=== PATIENT | male | born 1940 | race Caucasian/White ===

== ENCOUNTER → 2016-05-06 | Outpatient (CLI) | payer MEDICARE, BC ==
[2016-05-06 10:40] LABS: Basophils # (A) 0.1 k/uL (0-0.2); Basophils % (A) 1 %; CHCM 33.2; Eosinophils # (A) 0.5 k/uL (0-0.7); Eosinophils % (A) 6 %; HCT 44.3 % (39.0-53.0); HDW 2.44; HGB 14.6 gm/dL (13.0-17.5); Luc # (Auto) 0.29; Luc % (Auto) 4; Lymphocytes # (A) 2.9 k/uL (1.0-4.8); Lymphocytes % (A) 38 %; MCH 30.9 pg (25.0-35.0); MCHC 32.9 g/dL (31.0-37.0); Mean Platelet Volume 7.7; Monocytes # (A) 0.6 k/uL (0-1.0); Monocytes % (A) 7 %; Neutrophils # (A) 3.5 k/uL (1.3-7.7); Neutrophils % (A) 45 %; RBC 4.72 m/uL (4.30-5.90); RDW 13.5 % (11.5-15.5); WBC 7.8 k/uL (3.8-10.6); WBC (Perox) 7.95
[2016-05-06 10:57] LABS: Appearance,Urine Clear (Clear); Bilirubin,Urine Negative (Negative); Glucose,Urine (UA) Negative (Negative); Ketones,Urine Negative (Negative); Leukocyte Esterase,Urine Negative (Negative); Nitrite,Urine Negative (Negative); PH, Urine 5.5 (5.0-8.0); Protein,Urine Negative (Negative); Specific Gravity,Urine 1.008 (1.001-1.035); UA Billing (MACRO vs. MICRO) CHEM; Urobilinogen,Urine <2.0 mg/dL (<2.0)
[2016-05-06 11:16] LABS: Potassium 4.9 mmol/L (3.5-5.1)
[2016-05-06 11:17] LABS: Calcium 9.7 mg/dL (8.4-10.2); Magnesium 1.7 mg/dL (1.6-2.3); Phosphorous 3.8 mg/dL (2.5-4.5); Uric Acid 7.4 mg/dL (3.5-8.5)
== END | disposition home or self-care (01) ==
LOC: LABWHC1 10:00
PROVIDERS: ATTEND Internal Medicine Nephrology
DX: N18.3 Chronic kidney disease, stage 3 (moderate) (principal); E78.5 Hyperlipidemia, unspecified; D64.9 Anemia, unspecified; E55.9 Vitamin D deficiency, unspecified; E21.3 Hyperparathyroidism, unspecified; M10.9 Gout, unspecified; N39.0 Urinary tract infection, site not specified
CPT/HCPCS: 36415; 80048; 80061; 81003; 82306; 82728; 83540; 83550; 83735; 83970; 84100; 84550; 85025

== ENCOUNTER → 2016-10-14 | Outpatient (CLI) | payer MEDICARE, BC ==
--- NOTE | 2016-10-14 12:42 | FL ---
EXAMINATION TYPE: FL barium swallow w video DATE OF EXAM: 10/14/2016 COMPARISON: NONE HISTORY: Dysphasia TECHNIQUE: Fluoroscopy. FINDINGS: Fluoroscopic guidance was provided for the procedure performed in conjunction with the [facility] pathology department. Please see complete report forthcoming from the Speech Pathology departmen t. Various consistencies from thin liquid to solids were administered. No aspiration or penetration was evident. There is mild pooling within the vallecula which would clear with swallowing or liquids. There was normal propulsion of the bolus. IMPRESSION: 1. Mild pooling within the vallecula
== END | disposition home or self-care (01) ==
LOC: RADFLMAIN 11:09
PROVIDERS: ATTEND Surgery
DX: J38.7 Other diseases of larynx (principal); R13.10 Dysphagia, unspecified
CPT/HCPCS: 74230

== ENCOUNTER → 2016-11-18 | Outpatient (CLI) | payer MEDICARE, BC ==
[2016-11-18 11:03] LABS: Basophils # (A) 0.1 k/uL (0-0.2); Basophils % (A) 1 %; CH 31.1; CHCM 33.4; Eosinophils # (A) 0.3 k/uL (0-0.7); Eosinophils % (A) 4 %; HCT 42.5 % (39.0-53.0); HDW 2.49; HGB 14.2 gm/dL (13.0-17.5); Luc # (Auto) 0.25; Luc % (Auto) 3; Lymphocytes # (A) 2.8 k/uL (1.0-4.8); Lymphocytes % (A) 34 %; MCH 31.3 pg (25.0-35.0); MCHC 33.5 g/dL (31.0-37.0); MCV 93.5 fL (80.0-100.0); Mean Platelet Volume 7.7; Monocytes # (A) 0.7 k/uL (0-1.0); Monocytes % (A) 8 %; Neutrophils % (A) 50 %; RBC 4.55 m/uL (4.30-5.90); RDW 13.5 % (11.5-15.5); WBC 8.2 k/uL (3.8-10.6); WBC (Perox) 8.67
[2016-11-18 11:08] LABS: Appearance,Urine Clear (Clear); Bilirubin,Urine Negative (Negative); Glucose,Urine (UA) Negative (Negative); Ketones,Urine Negative (Negative); Leukocyte Esterase,Urine Negative (Negative); Nitrite,Urine Negative (Negative); PH, Urine 5.5 (5.0-8.0); Protein,Urine Negative (Negative); Specific Gravity,Urine 1.012 (1.001-1.035); UA Billing (MACRO vs. MICRO) CHEM; Urobilinogen,Urine <2.0 mg/dL (<2.0)
[2016-11-18 11:52] LABS: Calcium 9.7 mg/dL (8.4-10.2); Magnesium 1.7 mg/dL (1.6-2.3); Phosphorous 4.1 mg/dL (2.5-4.5); Potassium 4.7 mmol/L (3.5-5.1); Uric Acid 8.7 mg/dL (3.5-8.5)
[2016-11-18 12:02] LABS: % Iron Saturation 23.1 % (20-50)
== END | disposition home or self-care (01) ==
LOC: LABWHC1 10:13
PROVIDERS: ATTEND Internal Medicine Nephrology
DX: N18.3 Chronic kidney disease, stage 3 (moderate) (principal); D63.1 Anemia in chronic kidney disease; E55.9 Vitamin D deficiency, unspecified; N39.0 Urinary tract infection, site not specified; M10.9 Gout, unspecified
CPT/HCPCS: 36415; 80048; 81003; 82306; 82728; 83540; 83550; 83735; 83970; 84100; 84550; 85025

== ENCOUNTER → 2017-03-23 | Outpatient (CLI) | payer MEDICARE, OTHER | END | disposition home or self-care (01) | LOC: LABPAT 09:47 | PROVIDERS: ATTEND Internal Medicine Interventional Cardiology | DX: Z53.9 Procedure and treatment not carried out, unspecified reason (principal) ==

== ENCOUNTER → 2017-03-23 | Outpatient (CLI) | payer MEDICARE, OTHER ==
[2017-03-23 10:39] LABS: Appearance,Urine Clear (Clear); Bilirubin,Urine Negative (Negative); Glucose,Urine (UA) Negative (Negative); Ketones,Urine Negative (Negative); Leukocyte Esterase,Urine Negative (Negative); Nitrite,Urine Negative (Negative); PH, Urine 5.5 (5.0-8.0); Protein,Urine Trace (Negative); Specific Gravity,Urine 1.009 (1.001-1.035); UA Billing (MACRO vs. MICRO) CHEM; Urobilinogen,Urine <2.0 mg/dL (<2.0)
[2017-03-23 10:43] LABS: Basophils % (A) 1 %; CH 29.9; CHCM 31.8; Eosinophils # (A) 0.2 k/uL (0-0.7); Eosinophils % (A) 2 %; HCT 35.4 % (39.0-53.0); HDW 2.68; HGB 11.1 gm/dL (13.0-17.5); Hypochromasia Slight; Luc # (Auto) 0.17; Luc % (Auto) 2; Lymphocytes # (A) 1.9 k/uL (1.0-4.8); Lymphocytes % (A) 25 %; MCH 29.7 pg (25.0-35.0); MCHC 31.3 g/dL (31.0-37.0); MCV 94.7 fL (80.0-100.0); Mean Platelet Volume 8.5; Monocytes # (A) 0.7 k/uL (0-1.0); Monocytes % (A) 9 %; Neutrophils # (A) 4.8 k/uL (1.3-7.7); Neutrophils % (A) 62 %; RBC 3.74 m/uL (4.30-5.90); WBC 7.7 k/uL (3.8-10.6); WBC (Perox) 8.03
[2017-03-23 11:33] LABS: Calcium 9.6 mg/dL (8.4-10.2); Magnesium 1.7 mg/dL (1.6-2.3); Phosphorous 3.6 mg/dL (2.5-4.5); Potassium 4.5 mmol/L (3.5-5.1); Uric Acid 9.3 mg/dL (3.5-8.5)
[2017-03-23 15:40] LABS: Iron Saturation 20.9 (15.00-50.00)
== END | disposition home or self-care (01) ==
LOC: LABWHC1 09:42
PROVIDERS: ATTEND Internal Medicine Nephrology
DX: E03.9 Hypothyroidism, unspecified (principal); E11.29 Type 2 diabetes mellitus with other diabetic kidney complication; I12.9 Hypertensive chronic kidney disease with stage 1 through stage 4 chronic kidney disease, or unspecified chronic kidney disease; D63.1 Anemia in chronic kidney disease; N18.3 Chronic kidney disease, stage 3 (moderate); E55.9 Vitamin D deficiency, unspecified; E21.3 Hyperparathyroidism, unspecified; M10.9 Gout, unspecified; N39.0 Urinary tract infection, site not specified
CPT/HCPCS: 36415; 80048; 81003; 82306; 82728; 83036; 83540; 83550; 83735; 83970; 84100; 84439; 84443; 84550; 85025

== ENCOUNTER → 2017-05-04 | Outpatient (CLI) | payer MEDICARE, OTHER ==
--- NOTE | 2017-05-04 23:31 | CONS ---
CONSULTATION REASON FOR CONSULTATION: Poor sleep quality. Jim is a 76-year-old male patient and he is coming in with a chief complaint of poor sleep quality. He is having difficulty maintaining sleep and he has frequent arousals. He tells me that he has been a short sleeper all his life. Even at a young age, he had to listen to music or turn on some entertainment device to help him go to sleep. He required a short number of hours of sleep and he typically gets refreshed by sleeping around 5 hours. He has work in swing shifts rotation and he has retired for more than 30 years. He is known to have coronary artery disease and he has undergone cardiac surgery, including coronary artery bypass. He has chronic atrial fibrillation in addition to hypertension, hypothyroidism, hyperlipidemia and CHF with an ejection fraction of 20%-30%. He also has chronic pain. He tries to go to bed at around 11:00. He gets very restless in his legs prior to going to bed. He has numbness, tingling, creepy-crawly sensation and on a lot of occasions he has to get up and walk around to get rested and get some relief or comfort. He agrees on having symptoms of restless legs; however, he has not been on any form of treatment. This problem has been going on for many years. After going to bed, he wakes up within 2-3 hours and he cannot fall back to sleep easily. Sometimes, he is able to go back to sleep around 2:00 to 3:00 a.m. and ultimately will wake up on and off throughout the night. He snores in addition. This patient has been investigated for sleep apnea. Back in 2013, he was given a screening polysomnogram and he was found to have mild obstructive sleep apnea with an AHI of 15.4. His sleep study also showed moderately severe periodic limb movements and the patient was given a trial of CPAP which he was unable to undertake and he failed the treatment. Back then, his CPAP was set at a pressure of 10 cm of water. He tells me that the CPAP therapy made his sleep quality worse and he was unable to tolerate or get a restful sleep while on the treatment and for that reason, the treatment got discontinued. He has no anxiety. He has no depression. He has chronic body aches and pains and he feels better while taking Tylenol or Tylenol PM. Tylenol relieves his pain and improves his sleep quality in general. He has taken Ambien and Lunesta in the past to improve his sleep quality; however, both of these medications failed to improve his sleep quality. He has no nocturnal heartburn. No sleepwalking. No grinding of the teeth. No problems with memory or concentration during the day. On his Fitbit, it shows that he has been averaging somewhere between 4- 5 hours of sleep per night. PAST MEDICAL HISTORY: 1. Coronary artery disease with recent bypass surgery. 2. Chronic atrial fibrillation. 3. Hypothyroidism. 4. Hyperlipidemia. 5. Hypertension. 6. CHF. 7. Periodic limb movements. 8. Acid reflux. 9. Obesity. 10.Mild obstructive sleep apnea with an AHI of 15.4. PAST SURGICAL HISTORY: Includes coronary bypass surgery, tonsillectomy in 1952, hemorrhoidectomy in 1984, coronary artery bypass surgery in 1988, carotid endarterectomy on the left in 1990, endoscopy 2000, redo bypass surgery in 2001, left hip replacement 2004, right shoulder replacement 2007, cardioversion 2016 which failed to correct his atrial fibrillation. SOCIAL HISTORY: The patient is a nonsmoker. No history of alcohol. No IV drugs. He is retired for more than 30 years. Used to work in swing shifts in the past. OUTPATIENT MEDICATION LIST: Includes: 1. Amiodarone 200 mg twice a day. 2. Crestor 20 mg p.o. daily. 3. Lasix 40 mg p.o. daily. 4. Imdur 60 mg twice a day. 5. Levothyroxine 75 mcg p.o. daily. 6. Metoprolol 25 mg twice a day. 7. Omeprazole 20 mg p.o. daily. 8. Restasis 0.05% twice a day. 9. Aldactone 25 mg p.o. daily. 10.Valsartan 160 mg p.o. daily and. 11.Xarelto 15 mg p.o. daily. FAMILY HISTORY: Negative for sleep apnea and the patient has had positive family history for hypertension and cardiac disease and hyperlipidemia. REVIEW OF SYSTEMS: A 12-point review of system was done. Positive findings are mentioned above in the history of present illness. His BP is 107/68, pulse 72, respirations 16, temperature 97, saturation 94% on room air. Weight is 247. Height is 5 feet 6 inches, BMI 39.8. Neck size 17 inches. GENERAL APPEARANCE: Calm, comfortable. Head is atraumatic, normocephalic. Neck is short. There is no goiter or neck masses. LUNGS: Clear to auscultation. HEART: Sounds are irregular S1 and S2. No significant murmurs appreciated. ABDOMEN: Soft, obese. Organs cannot be adequately palpated. There is no direct tenderness, rebound tenderness or guarding. EXTREMITIES: No edema. No cyanosis or clubbing. Trace edema lower extremities bilaterally. IMPRESSION: 1. Sleep maintenance insomnia. This is multifactorial, as the patient has multiple comorbidities contributing to this issue. Pain obviously is a big factor, knowing that Tylenol would improve this patient's ability to maintain sleep and improve his daytime sleepiness in general. He does have mild obstructive sleep apnea with an apnea-hypopnea index of 15, yet the patient has failed CPAP therapy in the past and he has lost weight since 2013 and as such, I do not think sleep apnea is a significant contributing factor. Very much concerned that restless leg syndrome/periodic limb movement is a significant contributing factor and I think the 2 obvious contributing factors to his chronic insomnia are pain and restless leg/periodic limb movements. 2. Congestive heart failure with an ejection fraction of 20%-30%. 3. Coronary artery disease with previous bypass surgery x2. 4. Chronic atrial fibrillation. 5. Hypothyroidism. 6. Hyperlipidemia. 7. Hypertension. PLAN: 1. No need to repeat the sleep study at this point. 2. The patient has failed CPAP therapy in the past. 3. Encourage further weight loss. 4. Provide this patient Tylenol for pain control, especially at nighttime. 5. Start the patient on a trial basis0.5 mg of Requip at bedtime. 6. See me back in 30 days to assess clinical response and compliance. Meanwhile, the patient needs to implement improved sleep hygiene measures and this has been discussed with him at length. He may be a short sleeper, knowing that he can sleep 5 hours with good alertness during the day. I think we should avoid using hypnotics and concentrate on fixing his comorbid conditions and the sleep maintenance insomnia rather than using any other form of sleeping medications. Will hold off on CPAP therapy at this point. MMODL / IJN: [id number] /
== END | disposition home or self-care (01) ==
LOC: SLEEP 14:09
PROVIDERS: ATTEND Internal Medicine Critical Care Medicine
DX: G47.33 Obstructive sleep apnea (adult) (pediatric) (principal); R63.4 Abnormal weight loss; G25.81 Restless legs syndrome; G47.61 Periodic limb movement disorder; I11.0 Hypertensive heart disease with heart failure; I50.9 Heart failure, unspecified; E03.9 Hypothyroidism, unspecified; E78.5 Hyperlipidemia, unspecified; E66.9 Obesity, unspecified; K21.9 Gastro-esophageal reflux disease without esophagitis; I48.2 Chronic atrial fibrillation; I25.10 Atherosclerotic heart disease of native coronary artery without angina pectoris; Z95.1 Presence of aortocoronary bypass graft; Z79.899 Other long term (current) drug therapy; Z79.01 Long term (current) use of anticoagulants; Z98.890 Other specified postprocedural states
CPT/HCPCS: 99204; 99211

== ENCOUNTER → 2017-05-06 | Outpatient (CLI) | payer MEDICARE, OTHER ==
[2017-05-06 10:20] LABS: Potassium 4.7 mmol/L (3.5-5.1)
== END | disposition home or self-care (01) ==
LOC: LABWHC1 09:33
PROVIDERS: ATTEND Internal Medicine Interventional Cardiology
DX: I10 Essential (primary) hypertension (principal)
CPT/HCPCS: 36415; 80051; 82565; 84520

== ENCOUNTER 2017-05-12 05:48 | Day surgery (SDC) | payer MEDICARE, OTHER ==
[2017-05-05 23:23] VITALS: BMI 38.2
[2017-05-12] MEDS ORDERED: LACTATED RINGERS 1,000 ML IV SCH (05:53)
[2017-05-12] MEDS ORDERED: SODIUM CHLORIDE 0.9% 1,000 ML IV SCH ×2 (06:00→07:30)
[2017-05-12 06:32] VITALS: TEMP 97.9
[2017-05-12] MEDS ORDERED: PROPOFOL 10 MG/ML 20 ML VIAL IV ONE (06:58)
[2017-05-12] MEDS ORDERED: BUTALB/APAP/CAFF 50-325-40MG TAB PO PRN (07:25)
[2017-05-12 07:32] VITALS: RESP 16
[2017-05-12 08:57] VITALS: BP 98/50; PULSE 54
[2017-05-12] MEDS ORDERED: UBIDECARENONE 200 MG PO SCH (09:00)
[2017-05-12] MEDS ORDERED: [UNRECOGNIZED DRUG - REMARK] PO SCH (09:00)
[2017-05-12] MEDS ORDERED: FUROSEMIDE 40 MG TAB PO SCH (09:00)
[2017-05-12] MEDS ORDERED: METOPROLOL TARTRATE 25 MG TAB PO SCH (09:00)
[2017-05-12] MEDS ORDERED: NON-FORMULARY DRUG (Omeprazole [Prilosec] 20 MG) PO SCH (09:00)
[2017-05-12] MEDS ORDERED: MULTIVITAMINS, THERA 1 EACH TAB PO SCH (09:00)
[2017-05-12] MEDS ORDERED: SPIRONOLACTONE 25 MG TAB PO SCH (09:00)
[2017-05-12] MEDS ORDERED: AMIODARONE 200 MG TAB PO SCH (09:00)
[2017-05-12] MEDS ORDERED: NON-FORMULARY DRUG (Aspirin [Adult Low Dose Aspirin Ec] 81 MG) PO SCH (09:00)
[2017-05-12] MEDS ORDERED: CHOLECALCIFEROL 1,000 UNIT TAB PO SCH (09:00)
[2017-05-12] MEDS ORDERED: cycloSPORINE 0.05% OPHTH 0.4 ML DROPERETTE BOTH EYES SCH (09:00)
--- NOTE | 2017-05-12 10:30 | CE ---
CARDIAC ELECTROPHYSIOLOGY REPORT PROCEDURE PERFORMED: Cardioversion. INDICATION: Atrial fibrillation. PROCEDURE: After explaining the procedure to the patient, risks and complications, blood pressure, heart rate, O2 saturation was monitored. After obtaining sedated state by the anesthesia department, a biphasic synchronous 200 joules cardioversion was performed with jehovah's witness normal sinus rhythm. There was no immediate complication. BETH / JOSEN: [id number] /
[2017-05-12] MEDS ORDERED: RIVAROXABAN 15 MG TAB PO SCH (17:30)
[2017-05-12] MEDS ORDERED: ROPINIROLE HCL 5 MG PO SCH (21:00)
[2017-05-12] MEDS ORDERED: VALSARTAN 160 MG TAB PO SCH (21:00)
[2017-05-12] MEDS ORDERED: NON-FORMULARY DRUG (Rosuvastatin Calcium [Crestor] 20 MG) PO SCH (21:00)
== END 2017-05-12 08:57 | disposition home or self-care (01) ==
LOC: CATHCVL 05:48
PROVIDERS: ATTEND Internal Medicine Interventional Cardiology
DX: I48.1 Persistent atrial fibrillation (principal); I25.10 Atherosclerotic heart disease of native coronary artery without angina pectoris; I25.5 Ischemic cardiomyopathy; I34.0 Nonrheumatic mitral (valve) insufficiency; E11.22 Type 2 diabetes mellitus with diabetic chronic kidney disease; I12.9 Hypertensive chronic kidney disease with stage 1 through stage 4 chronic kidney disease, or unspecified chronic kidney disease; N18.9 Chronic kidney disease, unspecified; Z95.1 Presence of aortocoronary bypass graft; E78.2 Mixed hyperlipidemia; E07.9 Disorder of thyroid, unspecified; K21.9 Gastro-esophageal reflux disease without esophagitis; G47.33 Obstructive sleep apnea (adult) (pediatric); Z82.49 Family history of ischemic heart disease and other diseases of the circulatory system; Z79.01 Long term (current) use of anticoagulants; Z79.82 Long term (current) use of aspirin; Z79.51 Long term (current) use of inhaled steroids; Z79.899 Other long term (current) drug therapy; Z91.041 Radiographic dye allergy status; Z88.8 Allergy status to other drugs, medicaments and biological substances
CPT/HCPCS: 92960; J2704; 93005

== ENCOUNTER → 2017-05-24 | Outpatient (CLI) | payer MEDICARE, OTHER ==
[2017-05-24 10:37] LABS: Potassium 4.5 mmol/L (3.5-5.1)
[2017-05-24 10:55] LABS: T4, Free (Free Thyroxine) 1.47 ng/dL (0.78-2.19)
== END | disposition home or self-care (01) ==
LOC: LABWHC1 09:49
PROVIDERS: ATTEND Internal Medicine Interventional Cardiology
DX: E11.29 Type 2 diabetes mellitus with other diabetic kidney complication (principal); E03.9 Hypothyroidism, unspecified; I10 Essential (primary) hypertension
CPT/HCPCS: 36415; 80051; 82565; 84439; 84443; 84481; 84520

== ENCOUNTER 2017-07-24 13:24 | Inpatient (IN) | payer MEDICARE, OTHER ==
--- NOTE | 2017-07-24 14:13 | ED ---
Weakness HPI - General Chief complaint: Weakness Stated complaint: Weakness Time Seen by Provider: 07/24/17 14:03 Source: patient, family, RN notes reviewed Mode of arrival: wheelchair Limitations: no limitations - History of Present Illness Initial comments: This is a 76-year-old male history of A. fib heart disease GERD thyroid disease hypertension who was recently hospitalized for pneumonia who apparently has been out of Hospital for about a month but he states over last week he's become progressively weaker and unable walk with his walker which she normally had done very well. He also is had about a 12 pound weight gain since he was started on steroids. He just finished Augmentin on the of this month and just finished his steroid Dosepak yesterday. No fevers chills sweats no nausea no vomiting no shortness of breath and it was noted that he had increased abdominal girth. He denies any abdominal pain he does have peripheral edema which is said to be no worse than it had been when he was in the hospital. MD Complaint: generalized weakness, difficulty walking - Related Data Home Medications Medication Instructions Recorded Confirmed Cholecalciferol [Vitamin D3] 2,000 unit PO HS 09/20/13 07/24/17 Isosorbide Mononitrate ER [Imdur] 60 mg PO BID 09/20/13 07/24/17 Omeprazole [PriLOSEC] 20 mg PO QAM 09/20/13 07/24/17 Rosuvastatin Calcium [Crestor] 20 mg PO HS 09/20/13 07/24/17 Ubidecarenone [Coq-10] 200 mg PO QAM 09/20/13 07/24/17 Glucosam/Chond/Hyalu/Cf Borate 1 tab PO QAM 03/30/17 07/24/17 [Move Free Joint Health Tablet] L.acidoph,Paracasei, B.lactis 1 cap PO QAM 03/30/17 07/24/17 [Probiotic] Multivitamins, Thera [Multivitamin 1 tab PO QAM 03/30/17 07/24/17 (formulary)] Amiodarone [Cordarone] 200 mg PO DAILY 05/05/17 07/24/17 cycloSPORINE [Restasis] 1 applicator BOTH EYES BID 05/05/17 07/24/17 Levothyroxine Sodium [Synthroid] 112 mcg PO QAM 05/29/17 07/24/17 ALPRAZolam [Xanax] 0.25 mg PO TID PRN 07/14/17 07/24/17 Ferrous Sulfate [Feosol] 325 mg PO BID 07/14/17 07/24/17 Montelukast [Singulair] 10 mg PO HS 07/14/17 07/24/17 hydrOXYzine HCL [Atarax] 25 mg PO HS PRN 07/14/17 07/24/17 Acetaminophen [Tylenol Extra 1,000 mg PO Q6H PRN 07/24/17 07/24/17 Strength] Darbepoetin Sav [Aranesp] 40 mcg SQ WE 07/24/17 07/24/17 Furosemide [Lasix] 40 mg PO SUMOTUTHFR 07/24/17 07/24/17 Previous Rx's Medication Instructions Recorded Apixaban [Eliquis] 2.5 mg PO BID tablet 06/02/17 Metoprolol Tartrate [Lopressor] 12.5 mg PO BID #60 tab 06/14/17 Sodium Bicarbonate Tab 650 mg PO BID #60 tab 06/14/17 Allergies Allergy/AdvReac Type Severity Reaction Status Date / Time Iodinated Contrast- Oral and Allergy Anaphylaxis Verified 07/24/17 14:45 IV Dye [Iodinated Contrast Media - IV Dye] diazepam [From Valium] AdvReac Confusion Verified 07/24/17 14:45 Review of Systems ROS Statement: Those systems with pertinent positive or pertinent negative responses have been documented in the HPI. ROS Other: All systems not noted in ROS Statement are negative. Past Medical History Past Medical History: Atrial Fibrillation, Coronary Artery Disease (CAD), GERD/ Reflux, Hyperlipidemia, Hypertension, Myocardial Infarction (AL), Osteoarthritis (OA), Thyroid Disorder Additional Past Medical History / Comment(s): migraines, stage 3 kidney disease, Last Myocardial Infarction Date:: unknown History of Any Multi-Drug Resistant Organisms: None Reported Past Surgical History: Coronary Bypass/CABG, Heart Catheterization, Joint Replacement Additional Past Surgical History / Comment(s): CABG 1988,2001, left carotid endarectomy, left hip & rt shoulder replacements, nikolay cataract, Past Anesthesia/Blood Transfusion Reactions: No Reported Reaction Additional Past Anesthesia/Blood Transfusion Reaction / Comment(s): "1st CABG-( in [place]) - he was given card that states type 0 pos with anti-E" Past Psychological History: Anxiety Smoking Status: Never smoker Past Alcohol Use History: None Reported Past Drug Use History: None Reported - Past Family History Father Family Medical History: Cancer Mother Family Medical History: Cancer Sister(s) Family Medical History: Cancer General Exam - General Exam Comments Initial Comments: This a well-developed well-nourished awake alert oriented 3 male Limitations: no limitations General appearance: alert, in no apparent distress Head exam: Present: atraumatic, normocephalic, normal inspection Eye exam: Present: normal appearance, PERRL, EOMI. Absent: scleral icterus, conjunctival injection, periorbital swelling ENT exam: Present: normal exam, mucous membranes moist Neck exam: Present: normal inspection. Absent: tenderness, meningismus, lymphadenopathy Respiratory exam: Present: normal lung sounds bilaterally. Absent: respiratory distress, wheezes, rales, rhonchi, stridor Cardiovascular Exam: Present: regular rate, normal rhythm, normal heart sounds. Absent: systolic murmur, diastolic murmur, rubs, gallop, clicks GI/Abdominal exam: Present: soft, normal bowel sounds, other (Obese abdomen). Absent: distended, tenderness, guarding, rebound, rigid, bruit, pulsatile mass, hernia Extremities exam: Present: full ROM, normal capillary refill, pedal edema. Absent: tenderness, joint swelling, calf tenderness Back exam: Present: normal inspection Neurological exam: Present: alert, oriented X3, CN II-XII intact Psychiatric exam: Present: normal affect, normal mood Skin exam: Present: warm, dry, intact, normal color. Absent: rash Course Vital Signs 07/24/17 13:29 Temperature 97.8 F Pulse Rate 68 Respiratory 20 Rate Blood Pressure 127/83 O2 Sat by Pulse 96 Oximetry EKG Findings - EKG Results: EKG: interpreted by ERMD (Sinus rhythm a 63. We'll 178 QRS 100 daily since QTC of 420/437 old inferior and anterior changes noted.) Medical Decision Making - Medical Decision Making I did discuss findings with the patient family as well as with Dr. Schroeder. Patient be admitted with consultation by cardiology. Patient does complain of restless leg type pain. - Lab Data Result diagrams: 07/24/17 14:08 07/24/17 14:08 Lab Results 03/07/24/17 07/24/17 Range/Units 14:08 14:08 14:08 WBC 17.0 H (3.8-10.6) k/uL RBC 3.84 L (4.30-5.90) m/uL Hgb 10.6 L (13.0-17.5) gm/dL Hct 35.4 L (39.0-53.0) % MCV 92.0 (80.0-100.0) fL MCH 27.5 (25.0-35.0) pg MCHC 29.9 L (31.0-37.0) g/dL RDW 18.6 H (11.5-15.5) % Plt Count 161 (150-450) k/uL Neutrophils % 86 % Lymphocytes % 6 % Monocytes % 4 % Eosinophils % 4 % Basophils % 0 % Neutrophils # 14.6 H (1.3-7.7) k/uL Lymphocytes # 1.1 (1.0-4.8) k/uL Monocytes # 0.6 (0-1.0) k/uL Eosinophils # 0.6 (0-0.7) k/uL Basophils # 0.0 (0-0.2) k/uL Hypochromasia Marked Anisocytosis Slight Sodium (137-145) mmol/L Potassium (3.5-5.1) mmol/L Chloride (98-107) mmol/L Carbon Dioxide (22-30) mmol/L Anion Gap mmol/L BUN (9-20) mg/dL Creatinine (0.66-1.25) mg/dL Est GFR (CKD-EPI)AfAm (>60 ml/min/1.73 sqM) Est GFR (CKD-EPI)NonAf (>60 ml/min/1.73 sqM) Glucose (74-99) mg/dL Calcium (8.4-10.2) mg/dL Magnesium (1.6-2.3) mg/dL Total Bilirubin (0.2-1.3) mg/dL AST (17-59) U/L ALT (21-72) U/L Alkaline Phosphatase (38-126) U/L Total Creatine Kinase 57 (55-170) U/L CK-MB (CK-2) 2.1 (0.0-2.4) ng/mL CK-MB (CK-2) Rel Index 3.7 Troponin I 0.091 H* (0.000-0.034) ng/mL NT-Pro-B Natriuret Pep 60922 pg/mL Total Protein (6.3-8.2) g/dL Albumin (3.5-5.0) g/dL Urine Color Urine Appearance (Clear) Urine pH (5.0-8.0) Ur Specific [place] (1.001-1.035) Urine Protein (Negative) Urine Glucose (UA) (Negative) Urine Ketones (Negative) Urine Blood (Negative) Urine Nitrite (Negative) Urine Bilirubin (Negative) Urine Urobilinogen (<2.0) mg/dL Ur Leukocyte Esterase (Negative) Urine RBC (0-5) /hpf Urine WBC (0-5) /hpf Amorphous Sediment (None) /hpf Hyaline Casts (0-2) /lpf Urine Mucus (None) /hpf 07/24/17 07/24/17 Range/Units 14:08 14:50 WBC (3.8-10.6) k/uL RBC (4.30-5.90) m/uL Hgb (13.0-17.5) gm/dL Hct (39.0-53.0) % MCV (80.0-100.0) fL MCH (25.0-35.0) pg MCHC (31.0-37.0) g/dL RDW (11.5-15.5) % Plt Count (150-450) k/uL Neutrophils % % Lymphocytes % % Monocytes % % Eosinophils % % Basophils % % Neutrophils # (1.3-7.7) k/uL Lymphocytes # (1.0-4.8) k/uL Monocytes # (0-1.0) k/uL Eosinophils # (0-0.7) k/uL Basophils # (0-0.2) k/uL Hypochromasia Anisocytosis Sodium 143 (137-145) mmol/L Potassium 4.3 (3.5-5.1) mmol/L Chloride 108 H (98-107) mmol/L Carbon Dioxide 23 (22-30) mmol/L Anion Gap 12 mmol/L BUN 67 H (9-20) mg/dL Creatinine 2.43 H (0.66-1.25) mg/dL Est GFR (CKD-EPI)AfAm 29 (>60 ml/min/1.73 sqM) Est GFR (CKD-EPI)NonAf 25 (>60 ml/min/1.73 sqM) Glucose 151 H (74-99) mg/dL Calcium 9.1 (8.4-10.2) mg/dL Magnesium 2.3 (1.6-2.3) mg/dL Total Bilirubin 1.9 H (0.2-1.3) mg/dL AST 72 H (17-59) U/L ALT 81 H (21-72) U/L Alkaline Phosphatase 223 H (38-126) U/L Total Creatine Kinase (55-170) U/L CK-MB (CK-2) (0.0-2.4) ng/mL CK-MB (CK-2) Rel Index Troponin I (0.000-0.034) ng/mL NT-Pro-B Natriuret Pep pg/mL Total Protein 5.8 L (6.3-8.2) g/dL Albumin 3.3 L (3.5-5.0) g/dL Urine Color Yellow Urine Appearance Clear (Clear) Urine pH 5.5 (5.0-8.0) Ur Specific [place] 1.021 (1.001-1.035) Urine Protein 2+ H (Negative) Urine Glucose (UA) Negative (Negative) Urine Ketones Negative (Negative) Urine Blood Negative (Negative) Urine Nitrite Negative (Negative) Urine Bilirubin Negative (Negative) Urine Urobilinogen 2.0 (<2.0) mg/dL Ur Leukocyte Esterase Negative (Negative) Urine RBC 1 (0-5) /hpf Urine WBC 1 (0-5) /hpf Amorphous Sediment Rare H (None) /hpf Hyaline Casts 5 H (0-2) /lpf Urine Mucus Rare H (None) /hpf - Radiology Data Radiology results: report reviewed (I did review the imaging and report no acute findings.), image reviewed Disposition Clinical Impression: Elevated troponin, Chronic renal failure, Congestive heart failure, Chronic pain Disposition: ADMITTED IP TO THIS [facility] Condition: Stable Referrals: Andreas Schroeder MD [Primary Care Provider] - 1-2 days
[2017-07-24 14:21] LABS: Anisocytosis Slight; Basophils % (A) 0 %; Eosinophils # (A) 0.6 k/uL (0-0.7); Eosinophils % (A) 4 %; HCT 35.4 % (39.0-53.0); HGB 10.6 gm/dL (13.0-17.5); Hypochromasia Marked; Lymphocytes # (A) 1.1 k/uL (1.0-4.8); Lymphocytes % (A) 6 %; MCH 27.5 pg (25.0-35.0); MCHC 29.9 g/dL (31.0-37.0); Mean Platelet Volume 9.5; Monocytes # (A) 0.6 k/uL (0-1.0); Monocytes % (A) 4 %; Neutrophils # (A) 14.6 k/uL (1.3-7.7); Neutrophils % (A) 86 %; Platelet Count 161 k/uL (150-450); RBC 3.84 m/uL (4.30-5.90); RDW 18.6 % (11.5-15.5)
--- NOTE | 2017-07-24 14:27 | XR ---
EXAMINATION TYPE: XR chest 2V DATE OF EXAM: 07/24/2017 COMPARISON: Prior chest x-ray 06/09/2017 HISTORY: Cough, shortness of breath and chest pain TECHNIQUE: Frontal and lateral views of the chest are obtained on 3 images. FINDINGS: Patient is post median sternotomy and rotated, heart is again enlarged. Postop change note d to the right shoulder. No evident pneumothorax or pleural effusion. Central vascularity and interst itium are increased. IMPRESSION: Correlate for pulmonary venous hypertension and interstitial edema, follow-up is recomme nded. Expiratory rotated exam.
[2017-07-24 14:30] LABS: Albumin 3.3 g/dL (3.5-5.0); Calcium 9.1 mg/dL (8.4-10.2); Magnesium 2.3 mg/dL (1.6-2.3); Potassium 4.3 mmol/L (3.5-5.1); Total Bilirubin 1.9 mg/dL (0.2-1.3); Total Protein 5.8 g/dL (6.3-8.2)
[2017-07-24 15:01] LABS: Creatine Kinase MB 2.1 ng/mL (0.0-2.4)
[2017-07-24 15:03] LABS: Troponin I 0.091 ng/mL (0.000-0.034)
[2017-07-24 15:13] LABS: Amorphous Sediment,Urine Rare /hpf; Appearance,Urine Clear (Clear); Bilirubin,Urine Negative (Negative); Blood,Urine Negative (Negative); Color,Urine Yellow; Glucose,Urine (UA) Negative (Negative); Hyaline Casts,Urine 5 /lpf (0-2); Ketones,Urine Negative (Negative); Leukocyte Esterase,Urine Negative (Negative); Mucus,Urine Rare /hpf; Nitrite,Urine Negative (Negative); PH, Urine 5.5 (5.0-8.0); Protein,Urine 2+ (Negative); RBC,Urine 1 /hpf (0-5); Specific Gravity,Urine 1.021 (1.001-1.035); WBC,Urine 1 /hpf (0-5)
[2017-07-24] MEDS ORDERED: fentaNYL (PF) 50 MCG/ML 2 ML AMP IV STA (16:24)
[2017-07-24] MEDS ORDERED: hydrOXYzine HCL 25 MG TAB PO PRN (16:33)
[2017-07-24] MEDS: METOPROLOL TARTRATE 12.5 MG TAB PO SCH (22:31)
[2017-07-24] MEDS: cycloSPORINE 0.05% OPHTH 0.4 ML DROPERETTE BOTH EYES SCH (22:31)
[2017-07-24] MEDS: MONTELUKAST 10 MG TAB PO SCH (22:32)
[2017-07-24] MEDS: ISOSORBIDE MONONITRATE ER 60 MG TAB.ER.24H PO SCH (22:32)
[2017-07-24] MEDS: ATORVASTATIN 40 MG TAB PO SCH (22:32)
[2017-07-24] MEDS: APIXABAN 2.5 MG TABLET PO SCH (22:32)
[2017-07-24] MEDS: CHOLECALCIFEROL 1,000 UNIT TAB PO SCH (22:32)
[2017-07-24] MEDS: SODIUM BICARBONATE TAB 650 MG TAB PO SCH (22:32)
[2017-07-24] MEDS: FERROUS SULFATE 325 MG TAB PO SCH (22:33)
[2017-07-24] MEDS: FUROSEMIDE 10 MG/ML 4 ML VIAL IV SCH (22:33)
[2017-07-25] MEDS: ALPRAZolam 0.25 MG TAB PO PRN (00:17)
[2017-07-25] MEDS: SODIUM CHLORIDE 0.9% 1,000 ML IV SCH ×2 (05:53→08:51)
[2017-07-25] MEDS: LEVOTHYROXINE 112 MCG TAB PO SCH (06:47)
[2017-07-25] MEDS: PANTOPRAZOLE 40 MG TABLET PO SCH (06:47)
[2017-07-25] MEDS: AMIODARONE 200 MG TAB PO SCH (08:29)
[2017-07-25] MEDS: ISOSORBIDE MONONITRATE ER 60 MG TAB.ER.24H PO SCH ×2 (08:29→21:10)
[2017-07-25] MEDS: FUROSEMIDE 10 MG/ML 4 ML VIAL IV SCH ×2 (08:29→21:05)
[2017-07-25] MEDS: FERROUS SULFATE 325 MG TAB PO SCH ×2 (08:29→21:06)
[2017-07-25] MEDS: APIXABAN 2.5 MG TABLET PO SCH ×2 (08:29→21:06)
[2017-07-25] MEDS: SODIUM BICARBONATE TAB 650 MG TAB PO SCH ×2 (08:30→21:10)
[2017-07-25] MEDS: MULTIVITAMINS, THERA 1 EACH TAB PO SCH (08:30)
[2017-07-25] MEDS: METOPROLOL TARTRATE 12.5 MG TAB PO SCH ×2 (08:30→21:06)
[2017-07-25] MEDS: cycloSPORINE 0.05% OPHTH 0.4 ML DROPERETTE BOTH EYES SCH ×2 (08:30→21:05)
[2017-07-25] MEDS: LACTOBACILLUS ACIDOPH & BULGAR 1 EACH PACKET PO SCH (08:30)
[2017-07-25] MEDS ORDERED: UBIDECARENONE 200 MG PO SCH (09:00)
[2017-07-25] MEDS ORDERED: [UNRECOGNIZED DRUG - REMARK] PO SCH (09:00)
--- NOTE | 2017-07-25 11:28 | CONS ---
CONSULTATION Cardiology consultation note on Jim Romano. CHIEF COMPLAINT: Elevated troponin. Mr. Romano is a 76-year-old gentleman who comes to hospital complaining of fatigue, tiredness, not feeling well and mainly complains of having these restless legs. Due to this he comes to the ER where a whole host of lab tests were done that were abnormal and then he is admitted to the hospital. He denies chest pain and has stable exertional shortness of breath. He does not have any leg edema. He has known chronic atrial fibrillation and underwent cardioversion, has LV systolic dysfunction with an ejection fraction of 45% with [id number] mitral regurgitation. On a chest x- ray, he does not have any evidence of congestive heart failure. EKG shows sinus rhythm with nonspecific ST-T wave changes. Labs showed that he has renal insufficiency with a BUN of 67 and a creatinine of 2.4. Three sets of troponins are elevated at 0.09, 09 and 1, probably secondary to underlying renal failure. BNP is elevated at 13,000 and this is 13,000, even at last visit. PAST MEDICAL HISTORY: Significant for atrial fibrillation, coronary artery disease, GERD, hypertension, dyslipidemia, chronic renal insufficiency, coronary artery disease, status post CABG, left carotid endarterectomy, shoulder replacement, and cataract surgery. ALLERGIES: As charted. FAMILY HISTORY: Negative for premature coronary artery disease. SOCIAL HISTORY: Negative for current smoking, ETOH abuse or drug abuse. REVIEW OF SYSTEMS: HEENT is unremarkable. Cardiac as described above. Respiratory negative. GI negative. Genitourinary negative. Allergy none. Skin unremarkable. Musculoskeletal significant for arthritis. Psychosocial negative. Endocrine negative. Derm negative. CONSTITUTIONAL: Negative. Oncological negative. Rest of the systems review is not relevant. PHYSICAL EXAM: Comfortable at rest. Vital signs are stable. There is no jugular venous distention. Carotid upstroke is diminished. There is no bruit. Chest exam reveals good air entry bilaterally. Heart exam reveals first and second heart sounds. No gallop. Has a systolic murmur at the apex. ABDOMEN: Soft. Exam of the extremities reveals trace edema. Peripheral pulses are felt. LAB: Showed that the BNP is at 13,000, which is unchanged from last admission. BUN and creatinine are elevated. Troponin is elevated. ASSESSMENT: 1. Elevated troponin probably related to underlying renal failure. 2. Chronic renal failure. 3. Chronic systolic heart failure. 4. Coronary artery disease status post coronary artery bypass grafting. 5. Chronic atrial fibrillation status post cardioversion. PLAN: I will continue the patient on current medications. No further cardiac intervention is needed at this time. RACHIDL / IJN: [id number] /
[2017-07-25 11:43] LABS: Anisocytosis Slight; Basophils % (A) 0 %; Eosinophils # (A) 0.6 k/uL (0-0.7); Eosinophils % (A) 4 %; HCT 34.1 % (39.0-53.0); Hypochromasia Marked; Lymphocytes # (A) 0.8 k/uL (1.0-4.8); Lymphocytes % (A) 6 %; MCH 28.1 pg (25.0-35.0); MCHC 29.4 g/dL (31.0-37.0); MCV 95.4 fL (80.0-100.0); Macrocytosis Slight; Mean Platelet Volume 9.2; Monocytes # (A) 0.5 k/uL (0-1.0); Monocytes % (A) 4 %; Neutrophils # (A) 12.5 k/uL (1.3-7.7); Neutrophils % (A) 85 %; Platelet Count 127 k/uL (150-450); RBC 3.57 m/uL (4.30-5.90); RDW 18.8 % (11.5-15.5); WBC 14.7 k/uL (3.8-10.6)
[2017-07-25 12:00] LABS: Potassium 4.3 mmol/L (3.5-5.1)
[2017-07-25] MEDS ORDERED: FUROSEMIDE 40 MG TAB PO SCH (16:33)
--- NOTE | 2017-07-25 16:34 | P.HPIM ---
History of Present Illness H&P Date: 07/25/17 Chief Complaint: Don Fernandez is an 76-year-old white male well-known to me. He has a significant history of multiple medical comorbidities including atrial fibrillation coronary artery disease, hypothyroidism and hypertension. He was hospitalized last month for pneumonia. He's been home but a month. He was seen in the office for increasing cough and weakness. He was on Augmentin and steroids. She presented to the emergency room last night with increasing weakness and fatigue. He is currently resting on the stepdown unit. He indicates he just doesn't have any energy. He also complains of worsening of his restless leg syndrome. He stopped his Requip as he felt it wasn't helping. He denies any chest pain, has ongoing shortness of breath with exertion, denies any nausea, vomiting. indicates he has gained 12 pounds over the past several weeks. Review of Systems All systems: negative Past Medical History Past Medical History: Atrial Fibrillation, Coronary Artery Disease (CAD), Chest Pain / Angina, Heart Failure, GERD/Reflux, GI Bleed, Hyperlipidemia, Hypertension, Myocardial Infarction ([place]), Osteoarthritis ([place]), Pneumonia, Thyroid Disorder Additional Past Medical History / Comment(s): migraines, stage 3 kidney disease , pt. recently admitted 2017 for GI bleed, Systolic Congestive Heart Failure, diverticulosis, gastritis Last Myocardial Infarction Date:: unknown History of Any Multi-Drug Resistant Organisms: None Reported Past Surgical History: Coronary Bypass/CABG, Heart Catheterization, Joint Replacement Additional Past Surgical History / Comment(s): CABG 1988,2001, left carotid endarectomy, left hip & rt shoulder replacements, nikolay cataract, egd/ colonscopy 2017, cardioversion 2017, [facility] March 31, 2017 Past Anesthesia/Blood Transfusion Reactions: No Reported Reaction Additional Past Anesthesia/Blood Transfusion Reaction / Comment(s): "1st CABG-( in [place]) - he was given card that states type 0 pos with anti-E" Smoking Status: Never smoker - Past Family History Father Family Medical History: Cancer Mother Family Medical History: Cancer Sister(s) Family Medical History: Cancer Medications and Allergies Home Medications Medication Instructions Recorded Confirmed Type Cholecalciferol [Vitamin D3] 2,000 unit PO HS 09/20/13 07/24/17 History Isosorbide Mononitrate ER [Imdur] 60 mg PO BID 09/20/13 07/24/17 History Omeprazole [PriLOSEC] 20 mg PO QAM 09/20/13 07/24/17 History Rosuvastatin Calcium [Crestor] 20 mg PO HS 09/20/13 07/24/17 History Ubidecarenone [Coq-10] 200 mg PO QAM 09/20/13 07/24/17 History Glucosam/Chond/Hyalu/Cf Borate 1 tab PO QAM 03/30/17 07/24/17 History [Move Free Joint Health Tablet] L.acidoph,Paracasei, B.lactis 1 cap PO QAM 03/30/17 07/24/17 History [Probiotic] Multivitamins, Thera [Multivitamin 1 tab PO QAM 03/30/17 07/24/17 History (formulary)] Amiodarone [Cordarone] 200 mg PO DAILY 05/05/17 07/24/17 History cycloSPORINE [Restasis] 1 applicator BOTH EYES BID 05/05/17 07/24/17 History Levothyroxine Sodium [Synthroid] 112 mcg PO QAM 05/29/17 07/24/17 History Apixaban [Eliquis] 2.5 mg PO BID tablet 06/02/17 07/24/17 Rx Metoprolol Tartrate [Lopressor] 12.5 mg PO BID #60 tab 06/14/17 07/24/17 Rx Sodium Bicarbonate Tab 650 mg PO BID #60 tab 06/14/17 07/24/17 Rx ALPRAZolam [Xanax] 0.25 mg PO TID PRN 07/14/17 07/24/17 History Ferrous Sulfate [Feosol] 325 mg PO BID 07/14/17 07/24/17 History Montelukast [Singulair] 10 mg PO HS 07/14/17 07/24/17 History hydrOXYzine HCL [Atarax] 25 mg PO HS PRN 07/14/17 07/24/17 History Acetaminophen [Tylenol Extra 1,000 mg PO Q6H PRN 07/24/17 07/24/17 History Strength] Darbepoetin Sav [Aranesp] 40 mcg SQ WE 07/24/17 07/24/17 History Furosemide [Lasix] 40 mg PO SUMOTUTHFR 07/24/17 07/24/17 History Allergies Allergy/AdvReac Type Severity Reaction Status Date / Time Iodinated Contrast- Oral and Allergy Anaphylaxis Verified 07/24/17 14:45 IV Dye [Iodinated Contrast Media - IV Dye] diazepam [From Valium] AdvReac Confusion Verified 07/24/17 14:45 Physical Exam Vitals: Vital Signs Temp Pulse Pulse Resp BP BP Pulse Ox 07/25/17 11:49 97.7 F 63 20 141/68 98 07/25/17 08:29 98.9 F 70 18 120/60 99 07/25/17 04:05 99.5 F 71 19 139/70 98 07/25/17 00:15 98.9 F 78 19 147/68 98 07/25/17 00:10 78 19 07/24/17 20:10 75 20 07/24/17 19:30 98.2 F 75 20 145/65 98 07/24/17 18:33 97.7 F 62 18 144/66 97 Intake and Output 07/25/17 07/25/17 07/25/17 06:59 14:59 22:59 Intake Total 240 Balance 240 Intake: Oral 240 Other: Voiding Method Bedside Commode Bedside Commode # Voids 3 3 GENERAL: Fatigued, sweaty, morbidly obese male well-known to me. He looks much more fatigued than usual. HEAD: Atraumatic, normocephalic. EYES: Pupils equal round and reactive to light, extraocular movements intact, sclera anicteric, conjunctiva are normal. ENT: Moist mucous membranes. NECK: Normal range of motion, supple without lymphadenopathy or JVD, no thyromegaly LUNGS: Breath sounds coarse bibasilar rhonchi and crackles. HEART: Regular rate and rhythm without murmurs, rubs or gallops.S1S2 Normal ABDOMEN: Soft, nontender, normoactive bowel sounds. No guarding, no rebound. No masses appreciated. EXTREMITIES: Normal range of motion,++2 pedal edema. No clubbing or cyanosis. NEUROLOGICAL: Cranial nerves II through XII grossly intact. Normal speech, normal gait. PSYCH: Normal mood, normal affect. SKIN: Warm, Dry, normal turgor, no rashes or lesions noted. Results CBC & Chem 7: 07/25/17 11:33 07/25/17 11:33 Labs: Abnormal Lab Results - Last 24 Hours (Table) 07/24/17 07/25/17 07/25/17 Range/Units 22:44 02:12 11:33 WBC 14.7 H (3.8-10.6) k/uL RBC 3.57 L (4.30-5.90) m/uL Hgb 10.0 L (13.0-17.5) gm/dL Hct 34.1 L (39.0-53.0) % MCHC 29.4 L (31.0-37.0) g/dL RDW 18.8 H (11.5-15.5) % Plt Count 127 L (150-450) k/uL Neutrophils # 12.5 H (1.3-7.7) k/uL Lymphocytes # 0.8 L (1.0-4.8) k/uL BUN (9-20) mg/dL Creatinine (0.66-1.25) mg/dL Glucose (74-99) mg/dL Troponin I 0.091 H* 0.130 H* (0.000-0.034) ng/mL 07/25/17 Range/Units 11:33 WBC (3.8-10.6) k/uL RBC (4.30-5.90) m/uL Hgb (13.0-17.5) gm/dL Hct (39.0-53.0) % MCHC (31.0-37.0) g/dL RDW (11.5-15.5) % Plt Count (150-450) k/uL Neutrophils # (1.3-7.7) k/uL Lymphocytes # (1.0-4.8) k/uL BUN 60 H (9-20) mg/dL Creatinine 2.30 H (0.66-1.25) mg/dL Glucose 153 H (74-99) mg/dL Troponin I (0.000-0.034) ng/mL Chest x-ray: report reviewed Thrombosis Risk Factor Assmnt - DVT/VTE Prophylaxis DVT/VTE Prophylaxis: Pharmacologic Prophylaxis ordered - Choose All That Apply Any of the Below Risk Factors Present?: Yes Each Factor Represents 1 point: Obesity (BMI >25), Serious lung disease incl. pneumonia (< 1month), Swollen legs (current) Other Risk Factors: Yes Each Risk Factor Represents 3 Points: Age 75 years or older Other congenital or acquired thrombophilia - If yes, enter type in comment: No Thrombosis Risk Factor Assessment Total Risk Factor Score: 6 Thrombosis Risk Factor Assessment Level: High Risk Assessment and Plan Plan: ASSESSMENT: Acute exacerbation of asthma: Continue Singulair, consult pulmonology, add DuoNeb updrafts, Solu-Medrol, Levaquin Chronic systolic congestive heart failure, BNP 77510, EF 45%: Continue Lasix Elevated troponins, secondary to CHF exacerbation Acute on chronic kidney disease, stage IV, GFR 27 multifactorial Anemia, secondary to chronic kidney disease: Continue Aranesp and feosol History of atrial fibrillation with recent cardioversion, now in sinus rhythm: Continue Cordarone, metoprolol Coronary artery disease with h/o CABG hypothyroidism: Continue levothyroxine Essential hypertension Hyperlipidemia Morbid obesity restless leg syndrome: Trial of Mirapex GI prophylaxis: Protonix 40 mg PO Daily DVT prophylaxis: Eliquis 2.5mg PO BID PLAN: Consult pulmonology him and continue to monitor kidney function for possible consult nephrology. Add updrafts and steroids. Await recommendations from cardiology. His cardiac picture appears similar to his previous admission and cardiology believes she is stable. He will be reevaluated in the next 24 hours.
[2017-07-25] MEDS ORDERED: methylPREDNISolone SOD SUCCI 125 MG/2 ML VIAL IV STA (16:37)
[2017-07-25] MEDS ORDERED: LEVOFLOXACIN 500 MG TAB PO SCH (17:00)
[2017-07-25] MEDS: INSULIN ASPART 100 UNIT/ML 1 ML 10 ML VIAL SQ SCH ×2 (17:30→21:06)
[2017-07-25] MEDS: AMMONIUM LACTATE 12% CREAM 140 GM TUBE TOPICAL SCH (20:25)
[2017-07-25] MEDS: BUDESONIDE 0.5 MG/2 ML NEBU INHALATION SCH (20:39)
[2017-07-25] MEDS: MONTELUKAST 10 MG TAB PO SCH (21:06)
[2017-07-25] MEDS: CHOLECALCIFEROL 1,000 UNIT TAB PO SCH (21:06)
[2017-07-25] MEDS: ATORVASTATIN 40 MG TAB PO SCH (21:06)
[2017-07-25] MEDS: PRAMIPEXOLE 0.125 MG TAB PO SCH (21:07)
[2017-07-25] MEDS: guaiFENesin 600 MG TABLET.ER PO SCH (21:08)
[2017-07-25] MEDS: methylPREDNISolone SOD SUCCI 125 MG/2 ML VIAL IV SCH (21:10)
[2017-07-26] MEDS: ALPRAZolam 0.25 MG TAB PO PRN ×3 (01:08→22:14)
[2017-07-26] MEDS: ACETAMINOPHEN TAB 500 MG TAB PO PRN ×3 (04:16→22:13)
[2017-07-26] MEDS: methylPREDNISolone SOD SUCCI 125 MG/2 ML VIAL IV SCH (04:48)
[2017-07-26] MEDS: INSULIN ASPART 100 UNIT/ML 1 ML 10 ML VIAL SQ SCH ×4 (06:11→20:39)
[2017-07-26] MEDS: PANTOPRAZOLE 40 MG TABLET PO SCH (06:12)
[2017-07-26] MEDS: LEVOTHYROXINE 112 MCG TAB PO SCH (06:12)
[2017-07-26 06:41] LABS: Anisocytosis Slight; Basophils % (A) 0 %; Eosinophils # (A) 0.7 k/uL (0-0.7); Eosinophils % (A) 6 %; HCT 31.9 % (39.0-53.0); HGB 10.1 gm/dL (13.0-17.5); Hypochromasia Moderate; Lymphocytes % (A) 8 %; MCH 28.8 pg (25.0-35.0); MCHC 31.6 g/dL (31.0-37.0); MCV 91.2 fL (80.0-100.0); Mean Platelet Volume 8.8; Monocytes # (A) 0.4 k/uL (0-1.0); Monocytes % (A) 3 %; Neutrophils # (A) 10.4 k/uL (1.3-7.7); Neutrophils % (A) 82 %; Platelet Count 119 k/uL (150-450); Poikilocytosis Slight; RDW 18.7 % (11.5-15.5); WBC 12.7 k/uL (3.8-10.6)
[2017-07-26 06:58] LABS: Calcium 9.2 mg/dL (8.4-10.2); Magnesium 2.1 mg/dL (1.6-2.3); Potassium 4.1 mmol/L (3.5-5.1)
--- NOTE | 2017-07-26 07:18 | XR ---
EXAMINATION TYPE: XR chest 2V DATE OF EXAM: 07/26/2017 COMPARISON: Chest x-ray from 2 days ago. HISTORY: History of COPD and asthma with shortness of breath TECHNIQUE: Frontal and lateral views of the chest are obtained. FINDINGS: Overlying sternal wires and mediastinal clips are redemonstrated. There is surgical change right shoulder level partially imaged. There is advanced degenerative change left glenohumeral joint redemonstrated. Cardiac silhouette size is stable and mildly enlarged with central vascular congestion. There is no s uspicious focal airspace opacity, pleural effusion, or pneumothorax seen bilaterally. Interstitial ed michelle felt present as there are some Alejandro B lines in the periphery noted. IMPRESSION: Correlate for CHF exacerbation as there is cardiomegaly with central vascular congestion and interstitial edema redemonstrated.
[2017-07-26 08:00] LABS: T4, Free (Free Thyroxine) 1.79 ng/dL (0.78-2.19)
[2017-07-26] MEDS: BUDESONIDE 0.5 MG/2 ML NEBU INHALATION SCH (08:48)
[2017-07-26] MEDS: AMIODARONE 200 MG TAB PO SCH (09:14)
[2017-07-26] MEDS: FERROUS SULFATE 325 MG TAB PO SCH ×2 (09:14→20:38)
[2017-07-26] MEDS: guaiFENesin 600 MG TABLET.ER PO SCH ×2 (09:14→20:38)
[2017-07-26] MEDS: APIXABAN 2.5 MG TABLET PO SCH ×2 (09:14→20:38)
[2017-07-26] MEDS: FUROSEMIDE 10 MG/ML 4 ML VIAL IV SCH ×2 (09:14→20:38)
[2017-07-26] MEDS: AMMONIUM LACTATE 12% CREAM 140 GM TUBE TOPICAL SCH ×2 (09:14→20:39)
[2017-07-26] MEDS: cycloSPORINE 0.05% OPHTH 0.4 ML DROPERETTE BOTH EYES SCH ×2 (09:14→20:38)
[2017-07-26] MEDS: LACTOBACILLUS ACIDOPH & BULGAR 1 EACH PACKET PO SCH (09:15)
[2017-07-26] MEDS: ISOSORBIDE MONONITRATE ER 60 MG TAB.ER.24H PO SCH ×2 (09:15→20:38)
[2017-07-26] MEDS: SODIUM BICARBONATE TAB 650 MG TAB PO SCH ×2 (09:16→20:37)
[2017-07-26] MEDS: MULTIVITAMINS, THERA 1 EACH TAB PO SCH (09:16)
[2017-07-26] MEDS: METOPROLOL TARTRATE 12.5 MG TAB PO SCH ×2 (09:17→20:37)
--- NOTE | 2017-07-26 11:05 | P.CNPUL ---
History of Present Illness Consult date: 07/26/17 Reason for consult: dyspnea, asthma, abnormal CXR/CT, obstructive sleep apnea Chief complaint: Fatigue and shortness of breath History of present illness: This is a 76-year-old gentleman who presented to the emergency department with fatigue, shortness of breath, generalized weakness. The patient states this is been ongoing for over a week. He was started on Augmentin as an outpatient. He was also given an injection antibiotic. He states that he has gained about 12 pounds in the last few weeks. His is concerned that this might be due to the high-dose steroids he's been on. The patient complains of shortness of breath with minimal exertion. He denies fevers and chills. He denies cough productive of sputum. He is currently on room air. His chest x-ray does show pulmonary edema. He also had elevated troponins. Review of Systems All systems: negative Past Medical History Past Medical History: Atrial Fibrillation, Coronary Artery Disease (CAD), Chest Pain / Angina, Heart Failure, GERD/Reflux, GI Bleed, Hyperlipidemia, Hypertension, Myocardial Infarction ([place]), Osteoarthritis (OA), Pneumonia, Thyroid Disorder Additional Past Medical History / Comment(s): migraines, stage 3 kidney disease , pt. recently admitted 2017 for GI bleed, Systolic Congestive Heart Failure, diverticulosis, gastritis Last Myocardial Infarction Date:: unknown History of Any Multi-Drug Resistant Organisms: None Reported Past Surgical History: Coronary Bypass/CABG, Heart Catheterization, Joint Replacement Additional Past Surgical History / Comment(s): CABG 1988,2001, left carotid endarectomy, left hip & rt shoulder replacements, nikolay cataract, egd/ colonscopy 2017, cardioversion 2017, [facility] March 31, 2017 Past Anesthesia/Blood Transfusion Reactions: No Reported Reaction Additional Past Anesthesia/Blood Transfusion Reaction / Comment(s): "1st CABG-( in [place]) - he was given card that states type 0 pos with anti-E" Smoking Status: Never smoker - Past Family History Father Family Medical History: Cancer Mother Family Medical History: Cancer Sister(s) Family Medical History: Cancer Medications and Allergies Home Medications Medication Instructions Recorded Confirmed Type Cholecalciferol [Vitamin D3] 2,000 unit PO HS 09/20/13 07/24/17 History Isosorbide Mononitrate ER [Imdur] 60 mg PO BID 09/20/13 07/24/17 History Omeprazole [PriLOSEC] 20 mg PO QAM 09/20/13 07/24/17 History Rosuvastatin Calcium [Crestor] 20 mg PO HS 09/20/13 07/24/17 History Ubidecarenone [Coq-10] 200 mg PO QAM 09/20/13 07/24/17 History Glucosam/Chond/Hyalu/Cf Borate 1 tab PO QAM 03/30/17 07/24/17 History [Move Free Joint Health Tablet] L.acidoph,Paracasei, B.lactis 1 cap PO QAM 03/30/17 07/24/17 History [Probiotic] Multivitamins, Thera [Multivitamin 1 tab PO QAM 03/30/17 07/24/17 History (formulary)] Amiodarone [Cordarone] 200 mg PO DAILY 05/05/17 07/24/17 History cycloSPORINE [Restasis] 1 applicator BOTH EYES BID 05/05/17 07/24/17 History Levothyroxine Sodium [Synthroid] 112 mcg PO QAM 05/29/17 07/24/17 History Apixaban [Eliquis] 2.5 mg PO BID tablet 06/02/17 07/24/17 Rx Metoprolol Tartrate [Lopressor] 12.5 mg PO BID #60 tab 06/14/17 07/24/17 Rx Sodium Bicarbonate Tab 650 mg PO BID #60 tab 06/14/17 07/24/17 Rx ALPRAZolam [Xanax] 0.25 mg PO TID PRN 07/14/17 07/24/17 History Ferrous Sulfate [Feosol] 325 mg PO BID 07/14/17 07/24/17 History Montelukast [Singulair] 10 mg PO HS 07/14/17 07/24/17 History hydrOXYzine HCL [Atarax] 25 mg PO HS PRN 07/14/17 07/24/17 History Acetaminophen [Tylenol Extra 1,000 mg PO Q6H PRN 07/24/17 07/24/17 History Strength] Darbepoetin Sav [Aranesp] 40 mcg SQ WE 07/24/17 07/24/17 History Furosemide [Lasix] 40 mg PO SUMOTUTHFR 07/24/17 07/24/17 History Allergies Allergy/AdvReac Type Severity Reaction Status Date / Time Iodinated Contrast- Oral and Allergy Anaphylaxis Verified 07/24/17 14:45 IV Dye [Iodinated Contrast Media - IV Dye] diazepam [From Valium] AdvReac Confusion Verified 07/24/17 14:45 Physical Exam Osteopathic Statement: *. No significant issues noted on an osteopathic structural exam other than those noted in the History and Physical/Consult. Vitals: Vital Signs Temp Pulse Resp BP Pulse Ox 07/26/17 08:00 97.6 F 64 20 106/53 93 L 07/26/17 04:00 98.2 F 71 16 113/54 92 L 07/26/17 00:00 97.7 F 69 19 118/70 98 07/25/17 20:00 97.3 F L 70 17 116/67 99 07/25/17 15:30 96.4 F L 71 20 135/68 100 07/25/17 11:49 97.7 F 63 20 141/68 98 Intake and Output 07/25/17 07/26/17 07/26/17 22:59 06:59 14:59 Intake Total 370 20 Output Total 350 850 Balance 20 -830 Intake: IV 10 20 Invasive Line 2 10 20 Oral 360 Output: Urine 350 850 Other: Voiding Method Bedside Commode Bedside Commode # Voids 1 1 Weight 113.1 kg Gen.: Patient is alert and oriented 3, no acute distress, morbidly obese Cardiovascular: Regular rate and rhythm, S1/S2 Lungs: Bilateral crackles Abdomen: Soft nontender nondistended positive bowel sounds Extremities: 2+ pitting edema Results - Laboratory Findings CBC and BMP: 07/26/17 06:11 07/26/17 06:11 Abnormal lab findings: Abnormal Labs 07/24/17 07/24/17 07/24/17 14:08 14:08 14:08 WBC 17.0 H RBC 3.84 L Hgb 10.6 L Hct 35.4 L MCHC 29.9 L RDW 18.6 H Plt Count Neutrophils # 14.6 H Lymphocytes # Chloride 108 H BUN 67 H Creatinine 2.43 H Glucose 151 H Total Bilirubin 1.9 H AST 72 H ALT 81 H Alkaline Phosphatase 223 H Troponin I 0.091 H* Total Protein 5.8 L Albumin 3.3 L TSH Urine Protein Amorphous Sediment Hyaline Casts Urine Mucus 07/24/17 07/24/17 07/25/17 14:50 22:44 02:12 WBC RBC Hgb Hct MCHC RDW Plt Count Neutrophils # Lymphocytes # Chloride BUN Creatinine Glucose Total Bilirubin AST ALT Alkaline Phosphatase Troponin I 0.091 H* 0.130 H* Total Protein Albumin TSH Urine Protein 2+ H Amorphous Sediment Rare H Hyaline Casts 5 H Urine Mucus Rare H 07/25/17 07/25/17 07/26/17 11:33 11:33 06:11 WBC 14.7 H RBC 3.57 L Hgb 10.0 L Hct 34.1 L MCHC 29.4 L RDW 18.8 H Plt Count 127 L Neutrophils # 12.5 H Lymphocytes # 0.8 L Chloride BUN 60 H 56 H Creatinine 2.30 H 2.36 H Glucose 153 H 119 H Total Bilirubin AST ALT Alkaline Phosphatase Troponin I Total Protein Albumin TSH 7.990 H Urine Protein Amorphous Sediment Hyaline Casts Urine Mucus 07/26/17 06:11 WBC 12.7 H RBC 3.50 L Hgb 10.1 L Hct 31.9 L MCHC RDW 18.7 H Plt Count 119 L Neutrophils # 10.4 H Lymphocytes # Chloride BUN Creatinine Glucose Total Bilirubin AST ALT Alkaline Phosphatase Troponin I Total Protein Albumin TSH Urine Protein Amorphous Sediment Hyaline Casts Urine Mucus - Diagnostic Findings Chest x-ray: report reviewed, image reviewed Assessment and Plan Assessment: Acute exacerbation of CHF, EF 40-45%, systolic Pulmonary edema, fluid overload NSTEMI Doubt pneumonia Leukocytosis likely secondary to steroids Eosinophilic asthma Chronic kidney disease stage IV Suspect underlying HERIBERTO History of Afib Morbid obesity Elevated eosinophil and IgE levels Continue DuoNebs Q6 hours and as needed. Budesonide is scheduled for twice a day will be discontinued, patient states he is intolerant of this medication, it makes him dry-heave. Steroid taper quickly. Diuresis with Lasix, I/O, daily weight, repeat limited echo. Cardiology and nephrology both on board and appreciate recommendations. Patient could benefit from a sleep study however he did state that he had one approximately 3-4 years ago however he has gained more weight since then. Could consider biologic as outpatient for eos/IgE asthma. Discontinue ABX, patient refusing and doubt pneumonia. Repeat CXR in AM. Continue with pulmonary hygiene and supportive care. Continue to encourage incentive spirometer. We will continue to follow with labs and reports and adjust treatment as necessary. Thank you for this consultation.
--- NOTE | 2017-07-26 11:07 | P.NPCON ---
History of Present Illness - Reason for Consult chronic renal failure - History of Present Illness reason for consultation: Chronic kidney disease History of present illness: Patient is a 76-year-old male seen in renal consultation for chronic kidney disease. Patient has chronic kidney disease stage IIIB/4 with baseline creatinine in the range of 2-2.5. His GFR is at baseline. Patient presented to the hospital with generalized weakness and 12 pound weight gain over the last 1 month or so. Patient has had multiple hospitalizations in the last few months. He was initially admitted for GI bleed and then for CHF. At that time patient completed course of steroids but then developed pneumonia and steroids were reinstituted at that time. He just completed steroids last Wednesday. However due to worsening weakness he came to the hospital for further care. He is currently maintained on Lasix 40 mg IV twice daily. His weight is coming down. Weakness is slowly improving. No vomiting or diarrhea. Denies any melena or hematochezia. Denies use of NSAIDs. Hemodynamically stable. Vital signs are stable. General: The patient appeared well nourished and normally developed. HEENT: Head exam is unremarkable. Neck is without jugular venous distension. LUNGS: Lungs are clear to auscultation and percussion. Breath sounds decreased. HEART: Rate and Rhythm are regular. First and second heart sounds normal. No murmurs, rubs or gallops. ABDOMEN: Abdominal exam reveals normal bowel sounds. Non-tender and non- distended. No evidence of peritonitis. EXTREMITITES: 1+edema. Past Medical History Past Medical History: Atrial Fibrillation, Coronary Artery Disease (CAD), Chest Pain / Angina, Heart Failure, GERD/Reflux, GI Bleed, Hyperlipidemia, Hypertension, Myocardial Infarction ([place]), Osteoarthritis (OA), Pneumonia, Thyroid Disorder Additional Past Medical History / Comment(s): migraines, stage 3 kidney disease , pt. recently admitted 2017 for GI bleed, Systolic Congestive Heart Failure, diverticulosis, gastritis Last Myocardial Infarction Date:: unknown History of Any Multi-Drug Resistant Organisms: None Reported Past Surgical History: Coronary Bypass/CABG, Heart Catheterization, Joint Replacement Additional Past Surgical History / Comment(s): CABG 1988,2001, left carotid endarectomy, left hip & rt shoulder replacements, nikolay cataract, egd/ colonscopy 2017, cardioversion 2017, [facility] March 31, 2017 Past Anesthesia/Blood Transfusion Reactions: No Reported Reaction Additional Past Anesthesia/Blood Transfusion Reaction / Comment(s): "1st CABG-( in [place]) - he was given card that states type 0 pos with anti-E" Smoking Status: Never smoker - Past Family History Father Family Medical History: Cancer Mother Family Medical History: Cancer Sister(s) Family Medical History: Cancer Medications and Allergies Home Medications Medication Instructions Recorded Confirmed Type Cholecalciferol [Vitamin D3] 2,000 unit PO HS 09/20/13 07/24/17 History Isosorbide Mononitrate ER [Imdur] 60 mg PO BID 09/20/13 07/24/17 History Omeprazole [PriLOSEC] 20 mg PO QAM 09/20/13 07/24/17 History Rosuvastatin Calcium [Crestor] 20 mg PO HS 09/20/13 07/24/17 History Ubidecarenone [Coq-10] 200 mg PO QAM 09/20/13 07/24/17 History Glucosam/Chond/Hyalu/Cf Borate 1 tab PO QAM 03/30/17 07/24/17 History [Move Free Joint Health Tablet] L.acidoph,Paracasei, B.lactis 1 cap PO QAM 03/30/17 07/24/17 History [Probiotic] Multivitamins, Thera [Multivitamin 1 tab PO QAM 03/30/17 07/24/17 History (formulary)] Amiodarone [Cordarone] 200 mg PO DAILY 05/05/17 07/24/17 History cycloSPORINE [Restasis] 1 applicator BOTH EYES BID 05/05/17 07/24/17 History Levothyroxine Sodium [Synthroid] 112 mcg PO QAM 05/29/17 07/24/17 History Apixaban [Eliquis] 2.5 mg PO BID tablet 06/02/17 07/24/17 Rx Metoprolol Tartrate [Lopressor] 12.5 mg PO BID #60 tab 06/14/17 07/24/17 Rx Sodium Bicarbonate Tab 650 mg PO BID #60 tab 06/14/17 07/24/17 Rx ALPRAZolam [Xanax] 0.25 mg PO TID PRN 07/14/17 07/24/17 History Ferrous Sulfate [Feosol] 325 mg PO BID 07/14/17 07/24/17 History Montelukast [Singulair] 10 mg PO HS 07/14/17 07/24/17 History hydrOXYzine HCL [Atarax] 25 mg PO HS PRN 07/14/17 07/24/17 History Acetaminophen [Tylenol Extra 1,000 mg PO Q6H PRN 07/24/17 07/24/17 History Strength] Darbepoetin Sav [Aranesp] 40 mcg SQ WE 07/24/17 07/24/17 History Furosemide [Lasix] 40 mg PO SUMOTUTHFR 07/24/17 07/24/17 History Allergies Allergy/AdvReac Type Severity Reaction Status Date / Time Iodinated Contrast- Oral and Allergy Anaphylaxis Verified 07/24/17 14:45 IV Dye [Iodinated Contrast Media - IV Dye] diazepam [From Valium] AdvReac Confusion Verified 07/24/17 14:45 Physical Exam Vitals: Vital Signs Temp Pulse Resp BP Pulse Ox 07/26/17 08:00 97.6 F 64 20 106/53 93 L 07/26/17 04:00 98.2 F 71 16 113/54 92 L 07/26/17 00:00 97.7 F 69 19 118/70 98 07/25/17 20:00 97.3 F L 70 17 116/67 99 07/25/17 15:30 96.4 F L 71 20 135/68 100 07/25/17 11:49 97.7 F 63 20 141/68 98 Intake and Output 07/25/17 07/26/17 07/26/17 22:59 06:59 14:59 Intake Total 370 20 Output Total 350 850 Balance 20 -830 Intake: IV 10 20 Invasive Line 2 10 20 Oral 360 Output: Urine 350 850 Other: Voiding Method Bedside Commode Bedside Commode # Voids 1 1 Weight 113.1 kg Results - Lab Results Most recent lab results Calcium 9.2 mg/dL (8.4-10.2) 07/26/17 06:11 Magnesium 2.1 mg/dL (1.6-2.3) 07/26/17 06:11 07/26/17 06:11 07/26/17 06:11 Assessment and Plan Plan: assessment: #1. Chronic kidney disease stage IV secondary to nephrosclerosis and nonrecovered ATN with baseline creatinine in the range of 2-2.5. GFR near baseline. #2. Generalized weakness and weight gain related to long-term steroid use. #3. Systolic CHF with ejection fraction of 45% with moderate to severe mitral regurgitation. Mildly decompensated. #4. Anemia of chronic kidney disease maintained on Aranesp. #5. Chronic A. fib. Currently rate controlled. Cardiology following. Plan: Continue Lasix 40 mg IV twice daily for now. Avoid nephrotoxic agents and hypotensive episodes. Pulmonology following. Steroids per their recommendations. Maintain sodium bicarbonate 650 mg twice daily. Repeat electrolytes in the morning. Thank you for the consultation. I will continue to follow the patient with you during his hospital stay.
[2017-07-26 11:34] LABS: Hemoglobin A1C 7.1 % (4.0-6.0)
[2017-07-26] MEDS: SODIUM CHLORIDE 0.9% 1,000 ML IV SCH (12:05)
--- NOTE | 2017-07-26 13:28 | P.CONS ---
History of Present Illness - Chief Complaint Medical debility - History of Present Illness I had the op to see patient for inpatient rehab consultation with regard to medical debility. He was admitted to [facility] July 24 with generalized weakness. Seen by Dr. Soto who diagnosed CHF, pneumonia, non-STEMI. Seen by Dr. Sagastume who diagnosed chronic kidney disease stage IV with acute tubular necrosis. Chest x-rays followed for CHF and cardiomegaly. PT and OT prescribed. Previous functional history as elicited patient and : 76-year-old right- handed white male who is lives in one floor home with . Retired. does cooking, laundry, driving. Patient can be independent with tub bath or sitdown shower. Uses roller walker for gait 2018 related to 3 hospitalizations now. Doesn't smoke or drink. family history of cancer in both parents. Review of Systems Review of systems: ENT: Denies sneezes or discharge. Eyes: Denies discharge or photophobia. Cardiac: Denies chest pain or palpitation. Pulmonary: Mild shortness of breath. Gastrointestinal: Denies nausea, emesis, constipation, diarrhea. Genitourinary: Denies discharge or frequency. Musculoskeletal: Denies muscle or bone aches. Neurologic: Weakness especially lowers. Reports difficulty arising from bed or chair. Endocrine: Denies shakes or sweats. Oncology: Denies cancers. Dermatologic: Denies rash, itching, pruritus. ALLERGY/immunology: Denies sneezes, rashes. Past Medical History Past Medical History: Atrial Fibrillation, Coronary Artery Disease (CAD), Chest Pain / Angina, Heart Failure, GERD/Reflux, GI Bleed, Hyperlipidemia, Hypertension, Myocardial Infarction (TX), Osteoarthritis (OA), Pneumonia, Thyroid Disorder Additional Past Medical History / Comment(s): migraines, stage 3 kidney disease , pt. recently admitted 2017 for GI bleed, Systolic Congestive Heart Failure, diverticulosis, gastritis Last Myocardial Infarction Date:: unknown History of Any Multi-Drug Resistant Organisms: None Reported Past Surgical History: Coronary Bypass/CABG, Heart Catheterization, Joint Replacement Additional Past Surgical History / Comment(s): CABG 1988,2001, left carotid endarectomy, left hip & rt shoulder replacements, nikolay cataract, egd/ colonscopy 2017, cardioversion 2017, [facility] March 31, 2017 Past Anesthesia/Blood Transfusion Reactions: No Reported Reaction Additional Past Anesthesia/Blood Transfusion Reaction / Comm: "1st CABG-( in [place]) - he was given card that states type 0 pos with anti-E" Smoking Status: Never smoker - Past Family History Father Family Medical History: Cancer Mother Family Medical History: Cancer Sister(s) Family Medical History: Cancer Medications and Allergies Home Medications Medication Instructions Recorded Confirmed Type Cholecalciferol [Vitamin D3] 2,000 unit PO HS 09/20/13 07/24/17 History Isosorbide Mononitrate ER [Imdur] 60 mg PO BID 09/20/13 07/24/17 History Omeprazole [PriLOSEC] 20 mg PO QAM 09/20/13 07/24/17 History Rosuvastatin Calcium [Crestor] 20 mg PO HS 09/20/13 07/24/17 History Ubidecarenone [Coq-10] 200 mg PO QAM 09/20/13 07/24/17 History Glucosam/Chond/Hyalu/Cf Borate 1 tab PO QAM 03/30/17 07/24/17 History [Move Free Joint Health Tablet] L.acidoph,Paracasei, B.lactis 1 cap PO QAM 03/30/17 07/24/17 History [Probiotic] Multivitamins, Thera [Multivitamin 1 tab PO QAM 03/30/17 07/24/17 History (formulary)] Amiodarone [Cordarone] 200 mg PO DAILY 05/05/17 07/24/17 History cycloSPORINE [Restasis] 1 applicator BOTH EYES BID 05/05/17 07/24/17 History Levothyroxine Sodium [Synthroid] 112 mcg PO QAM 05/29/17 07/24/17 History Apixaban [Eliquis] 2.5 mg PO BID tablet 06/02/17 07/24/17 Rx Metoprolol Tartrate [Lopressor] 12.5 mg PO BID #60 tab 06/14/17 07/24/17 Rx Sodium Bicarbonate Tab 650 mg PO BID #60 tab 06/14/17 07/24/17 Rx ALPRAZolam [Xanax] 0.25 mg PO TID PRN 07/14/17 07/24/17 History Ferrous Sulfate [Feosol] 325 mg PO BID 07/14/17 07/24/17 History Montelukast [Singulair] 10 mg PO HS 07/14/17 07/24/17 History hydrOXYzine HCL [Atarax] 25 mg PO HS PRN 07/14/17 07/24/17 History Acetaminophen [Tylenol Extra 1,000 mg PO Q6H PRN 07/24/17 07/24/17 History Strength] Darbepoetin Sav [Aranesp] 40 mcg SQ WE 07/24/17 07/24/17 History Furosemide [Lasix] 40 mg PO SUMOTUTHFR 07/24/17 07/24/17 History Allergies Allergy/AdvReac Type Severity Reaction Status Date / Time Iodinated Contrast- Oral and Allergy Anaphylaxis Verified 07/24/17 14:45 IV Dye [Iodinated Contrast Media - IV Dye] diazepam [From Valium] AdvReac Confusion Verified 07/24/17 14:45 Physical Exam Vitals: Vital Signs Temp Pulse Resp BP Pulse Ox 07/26/17 12:00 97.3 F L 63 18 98/48 93 L 07/26/17 08:00 97.6 F 64 20 106/53 93 L 07/26/17 04:00 98.2 F 71 16 113/54 92 L 07/26/17 00:00 97.7 F 69 19 118/70 98 07/25/17 20:00 97.3 F L 70 17 116/67 99 07/25/17 15:30 96.4 F L 71 20 135/68 100 Intake and Output 07/25/17 07/26/17 07/26/17 22:59 06:59 14:59 Intake Total 370 20 20 Output Total 350 850 Balance 20 -830 20 Intake: IV 10 20 20 Invasive Line 2 10 20 20 Oral 360 Output: Urine 350 850 Other: Voiding Method Bedside Commode Bedside Commode Bedside Commode # Voids 1 1 Weight 113.1 kg Skin: Atrophic, intact. General: Overweight build and comfortable appearance. Head: Normocephalic, atraumatic. Eyes: Symmetric. Pupils equal round. Ears: Symmetric. Hearing within normal limits. Mouth: Clear. Neck: Supple. Carotid without bruit. Cardiac: Regular rate and rhythm. Lungs: Clear anteriorly and posteriorly. Abdomen: Soft active nontender. Overweight. Extremities: Normal tone. Neurological: Mental status: Alert, cooperative, pleasant. Cranial nerves: Symmetric facial tone and trapezius. Motor: Actively elevates arms and legs are about antigravity. Sensation: Intact throughout. DTRs: Symmetric and equal throughout. Mobility: Sits and stands with minimal assistance. Results CBC & Chem 7: 07/26/17 06:11 07/26/17 06:11 Labs: Abnormal Lab Results - Last 24 Hours (Table) 07/26/17 07/26/17 Range/Units 06:11 06:11 WBC 12.7 H (3.8-10.6) k/uL RBC 3.50 L (4.30-5.90) m/uL Hgb 10.1 L (13.0-17.5) gm/dL Hct 31.9 L (39.0-53.0) % RDW 18.7 H (11.5-15.5) % Plt Count 119 L (150-450) k/uL Neutrophils # 10.4 H (1.3-7.7) k/uL BUN 56 H (9-20) mg/dL Creatinine 2.36 H (0.66-1.25) mg/dL Glucose 119 H (74-99) mg/dL TSH 7.990 H (0.465-4.680) mIU/L Chest x-ray: report reviewed (Followed for CHF and cardiomegaly.) Assessment and Plan (1) Congestive heart failure Current Visit: Yes Status: Acute Code(s): I50.9 - HEART FAILURE, UNSPECIFIED SNOMED Code(s): 20057558 Plan: Impression: 1. Medical debility. 2. CHF. 3. Acute bronchitis. 4. Chronic kidney disease stage IV with acute tubular necrosis 5. Coronary artery disease with history of angina, [place]. 6. Hypertension. 7. Dyslipidemia. 8. Atrial fibrillation. 9. History of GI bleed. 10. osteo arthritis. Comments and plan: At this time PT and OT are ordered. We'll follow therapies with yourself. Have discussed insurance criteria for admission to rehab, with patient and . Require notes from therapy with regard to physical assistance needs and safety concerns.
--- NOTE | 2017-07-26 14:05 | P.PN ---
Subjective Progress Note Date: 07/26/17 07/25/2017-Note per Dr. Schroeder Jim is an 76-year-old white male well-known to me. He has a significant history of multiple medical comorbidities including atrial fibrillation coronary artery disease, hypothyroidism and hypertension. He was hospitalized last month for pneumonia. He's been home but a month. He was seen in the office for increasing cough and weakness. He was on Augmentin and steroids. She presented to the emergency room last night with increasing weakness and fatigue. He is currently resting on the stepdown unit. He indicates he just doesn't have any energy. He also complains of worsening of his restless leg syndrome. He stopped his Requip as he felt it wasn't helping. He denies any chest pain, has ongoing shortness of breath with exertion, denies any nausea, vomiting. indicates he has gained 12 pounds over the past several weeks. 07/26/2017 Patient seen and examined on rounds with Dr. Posey. Patient states he has restless leg syndrome that has been bothering him. Patient was previously prescribed Requip but he states that he quit taking it. Patient was started on Mirapex yesterday per Dr. Schroeder. Patient denies chest pain or pressure. Denies shortness of breath at rest. Chest x-ray this morning reveals cardiomegaly with central vascular congestion and interstitial edema suggestive of congestive heart failure. Patient remains on Lasix 40 mg IV every 12 hours. Pulmonology is on consult. Patient steroids have been transitioned to oral. Antibiotics have also been discontinued per pulmonary. Patient states he would like to go somewhere for rehab at the time of discharge. Objective - Vital Signs Vital signs: Vital Signs Temp 97.3 F L 07/26/17 12:00 Pulse 63 07/26/17 12:00 Resp 18 07/26/17 12:00 BP 98/48 07/26/17 12:00 Pulse Ox 93 L 07/26/17 12:00 Intake & Output 07/25/17 07/26/17 07/26/17 18:59 06:59 18:59 Intake Total 600 30 20 Output Total 1200 Balance 600 -1170 20 Weight 113.1 kg Intake: IV 30 20 Invasive Line 2 30 20 Oral 600 Output: Urine 1200 Other: Voiding Method Bedside Commode Bedside Commode Bedside Commode # Voids 3 1 - Exam GENERAL: This is a 76-year-old male in no apparent distress at the time of examination. Tearful at times during examination. HEENT: Head is atraumatic, normocephalic. Pupils are equal, round, and reactive to light. Sclerae anicteric. Conjunctivae are clear. Mucus membranes of the mouth are moist. Neck is supple. RESPIRATORY: Clear to ausculation, diminished at the bases. No wheezes, rales, or rhonchi. No use of accessory muscles. Patient maintaining oxygen saturation greater than 92%. No chest wall tenderness is noted on palpation or with deep breathing. CARDIOVASCULAR: Regular rate and rhythm. S1 and S2 noted. No systolic or diastolic murmur auscultated. No JVD noted. No S3 or S4 noted. GASTROINTESTINAL: No distention noted. Abdomen soft and round. Normal active bowel sounds auscultated x 4 quadrants. No pain or tenderness noted upon palpation. INTEGUMENTARY: No cyanosis. No jaundice. No rashes noted. No cellulitis noted. EXTREMITIES: 2+ peripheral pulses. Trace bilateral lower extremity edema. No calf tenderness noted. NEUROLOGIC: Cranial nerves II-XII intact. PSYCHIATRIC: Awake, alert, and oriented X 3. Appropriate affect. Intact judgement and insight. - Labs CBC & Chem 7: 07/26/17 06:11 07/26/17 06:11 Labs: Abnormal Lab Results - Last 24 Hours (Table) 07/26/17 07/26/17 Range/Units 06:11 06:11 WBC 12.7 H (3.8-10.6) k/uL RBC 3.50 L (4.30-5.90) m/uL Hgb 10.1 L (13.0-17.5) gm/dL Hct 31.9 L (39.0-53.0) % RDW 18.7 H (11.5-15.5) % Plt Count 119 L (150-450) k/uL Neutrophils # 10.4 H (1.3-7.7) k/uL BUN 56 H (9-20) mg/dL Creatinine 2.36 H (0.66-1.25) mg/dL Glucose 119 H (74-99) mg/dL TSH 7.990 H (0.465-4.680) mIU/L Assessment and Plan Plan: ASSESSMENT: Acute exacerbation of systolic congestive heart failure, EF 40-45% Elevated troponins, NSTEMI ruled out per cardiology, he be secondary to underlying renal failure or congestive heart failure Leukocytosis, likely secondary to steroids, no evidence of sepsis Chronic kidney disease, stage IV Coronary artery disease with previous CABG Chronic atrial fibrillation Generalized weakness and weight gain related to long-term steroid use Anemia of chronic disease Morbid obesity: BMI 40.2 PLAN: Consult nephrology per patient's request Pulmonary on consult. Appreciate recommendations and input Steroids transitioned to oral per pulmonary. Taper per pulmonary Antibiotics discontinued per pulmonary as pneumonia is unlikely Cardiology on consult. Appreciate recommendations and input Continue Lasix IV 40 mg every 12 hours Repeat chest x-ray in a.m. Home meds as appropriate Monitor labs GI prophylaxis: Protonix 40 mg PO Daily DVT prophylaxis: Eliquis 2.5mg PO BID Monitor vital signs and address as appropriate Consult Dr. Jacobs for possible inpatient rehab at the time of discharge Further recommendations pending patient's course Nurse practitioner note has been reviewed by physician. Signing provider agrees with the documented findings, assessment, and plan of care.
[2017-07-26 14:44] VITALS: BMI 40.2
[2017-07-26] MEDS: IPRATROPIUM-ALBUTEROL 3 ML NEB INHALATION PRN (20:27)
[2017-07-26] MEDS: CHOLECALCIFEROL 1,000 UNIT TAB PO SCH (20:38)
[2017-07-26] MEDS: PRAMIPEXOLE 0.125 MG TAB PO SCH (20:38)
[2017-07-26] MEDS: MONTELUKAST 10 MG TAB PO SCH (20:38)
[2017-07-26] MEDS: ATORVASTATIN 40 MG TAB PO SCH (20:38)
[2017-07-27] MEDS ORDERED: HYDROcodone/APAP 10-325MG 1 EACH TAB PO PRN (04:35)
[2017-07-27] MEDS: INSULIN ASPART 100 UNIT/ML 1 ML 10 ML VIAL SQ SCH ×4 (06:37→21:15)
[2017-07-27] MEDS: LEVOTHYROXINE 112 MCG TAB PO SCH (06:39)
[2017-07-27] MEDS: PANTOPRAZOLE 40 MG TABLET PO SCH (06:39)
[2017-07-27 07:41] LABS: Calcium 8.8 mg/dL (8.4-10.2); Potassium 4.1 mmol/L (3.5-5.1)
[2017-07-27] MEDS: IPRATROPIUM-ALBUTEROL 3 ML NEB INHALATION PRN ×4 (08:04→20:34)
--- NOTE | 2017-07-27 08:30 | XR ---
EXAMINATION TYPE: XR chest 2V DATE OF EXAM: 07/27/2017 COMPARISON: Prior chest x-ray 07/26/2017 HISTORY: Congestive heart failure, pneumonia TECHNIQUE: Frontal and lateral views of the chest are obtained. FINDINGS: Patient is post median sternotomy. Heart is enlarged. Patient is rotated. There are overly ing cardiac leads. Interstitium is again increased, airspace disease again noted in the perihilar loc ations. No evident pneumothorax or pleural effusion. IMPRESSION: Correlate for congestive heart failure, pneumonia not excluded, follow-up recommended.
[2017-07-27] MEDS: predniSONE 20 MG TAB PO SCH (08:31)
[2017-07-27] MEDS: SODIUM BICARBONATE TAB 650 MG TAB PO SCH ×2 (08:31→19:57)
[2017-07-27] MEDS: LACTOBACILLUS ACIDOPH & BULGAR 1 EACH PACKET PO SCH (08:31)
[2017-07-27] MEDS: ISOSORBIDE MONONITRATE ER 60 MG TAB.ER.24H PO SCH ×2 (08:31→19:57)
[2017-07-27] MEDS: FUROSEMIDE 10 MG/ML 4 ML VIAL IV SCH ×3 (08:31→19:55)
[2017-07-27] MEDS: FERROUS SULFATE 325 MG TAB PO SCH ×2 (08:31→19:56)
[2017-07-27] MEDS: METOPROLOL TARTRATE 12.5 MG TAB PO SCH ×2 (08:31→19:57)
[2017-07-27] MEDS: MULTIVITAMINS, THERA 1 EACH TAB PO SCH (08:31)
[2017-07-27] MEDS: APIXABAN 2.5 MG TABLET PO SCH ×2 (08:31→19:56)
[2017-07-27] MEDS: AMIODARONE 200 MG TAB PO SCH (08:32)
[2017-07-27] MEDS: cycloSPORINE 0.05% OPHTH 0.4 ML DROPERETTE BOTH EYES SCH ×2 (08:32→19:56)
[2017-07-27] MEDS: guaiFENesin 600 MG TABLET.ER PO SCH ×2 (08:32→19:56)
--- NOTE | 2017-07-27 09:21 | P.PN ---
Subjective Patient is seen in follow-up for chronic kidney disease. Patient has chronic kidney disease stage IIIB/4 with baseline creatinine the range of 2-2.5. GFR is at baseline. Patient presented with generalized weakness and weight gain. Patient was receiving steroids on and off for nearly the past 2 months. He gained about 12 pounds over the last 2 months or so he is noted to have an ejection fraction of 45% with moderate to severe mitral regurgitation. Currently maintained on Lasix 40 mg IV twice daily. Edema is improving. Denies chest pain or shortness of breath. Vital signs are stable. General: The patient appeared well nourished and normally developed. HEENT: Head exam is unremarkable. Neck is without jugular venous distension. LUNGS: Lungs are clear to auscultation and percussion. Breath sounds decreased. HEART: Rate and Rhythm are regular. First and second heart sounds normal. No murmurs, rubs or gallops. ABDOMEN: Abdominal exam reveals normal bowel sounds. Non-tender and non- distended. No evidence of peritonitis. EXTREMITITES: 1+ edema. Objective - Vital Signs Vital signs: Vital Signs Temp 97.9 F 07/27/17 07:36 Pulse 73 07/27/17 07:36 Resp 18 07/27/17 07:36 BP 121/56 07/27/17 07:36 Pulse Ox 93 L 07/27/17 07:36 Intake & Output 07/26/17 07/27/17 07/27/17 18:59 06:59 18:59 Intake Total 380 270 Output Total 1700 Balance 380 -1430 Weight 113.1 kg 112.3 kg Intake: IV 20 30 Invasive Line 2 20 30 Oral 360 240 Output: Urine 1700 Other: Voiding Method Bedside Commode Bedside Commode # Voids 1 - Labs CBC & Chem 7: 07/26/17 06:11 07/27/17 06:37 Labs: Abnormal Lab Results - Last 24 Hours (Table) 07/26/17 07/27/17 Range/Units 06:11 06:37 BUN 53 H (9-20) mg/dL Creatinine 2.20 H (0.66-1.25) mg/dL Glucose 102 H (74-99) mg/dL Hemoglobin A1c 7.1 H (4.0-6.0) % Assessment and Plan Plan: assessment: #1. Chronic kidney disease stage IV secondary to nephrosclerosis and nonrecovered ATN with baseline creatinine in the range of 2-2.5. GFR near baseline. #2. Generalized weakness and weight gain related to long-term steroid use. #3. Systolic CHF with ejection fraction of 45% with moderate to severe mitral regurgitation. Mildly decompensated. #4. Anemia of chronic kidney disease maintained on Aranesp. #5. Chronic A. fib. Currently rate controlled. Cardiology following. Plan: Continue Lasix 40 mg IV twice daily for now. Avoid nephrotoxic agents and hypotensive episodes. Pulmonology following. Steroids per their recommendations. Maintain sodium bicarbonate 650 mg twice daily. Repeat electrolytes in the morning. No changes from nephrology standpoint.
--- NOTE | 2017-07-27 09:47 | P.PN ---
Subjective Progress Note Date: 07/27/17 HPI: This is a 76-year-old gentleman who presented to the emergency department with fatigue, shortness of breath, generalized weakness. The patient states this is been ongoing for over a week. He was started on Augmentin as an outpatient. He was also given an injection antibiotic. He states that he has gained about 12 pounds in the last few weeks. His is concerned that this might be due to the high-dose steroids he's been on. The patient complains of shortness of breath with minimal exertion. He denies fevers and chills. He denies cough productive of sputum. He is currently on room air. His chest x-ray does show pulmonary edema. He also had elevated troponins. 07/27/17- patient is being seen examined and evaluated today on rounds. The patient appears very sleepy resting up in bed on room air. states she is concerned that the patient did receive Pinch and it is too much for him. The patient only takes extra strength Tylenol at home she would like him to be put back on the Tylenol rather than use Pinch. His chest x-ray has been reviewed and still is consistent with CHF. He continues on Lasix 40 mg twice a day. Apparently the patient refused his a.m. dose of IV Lasix, the importance of receiving his Lasix in regards to his heart failure has been discussed with him , is in agreeing to take it at this time. Discussed this with his nurse as well and his a.m. dose will be given now. Objective - Vital Signs Vital signs: Vital Signs Temp 97.9 F 07/27/17 07:36 Pulse 73 07/27/17 08:00 Resp 18 07/27/17 08:00 BP 121/56 07/27/17 07:36 Pulse Ox 93 L 07/27/17 07:36 Intake & Output 07/26/17 07/27/17 07/27/17 18:59 06:59 18:59 Intake Total 380 270 10 Output Total 1700 Balance 380 -1430 10 Weight 113.1 kg 112.3 kg Intake: IV 20 30 10 Invasive Line 2 20 30 10 Oral 360 240 Output: Urine 1700 Other: Voiding Method Bedside Commode Bedside Commode Bedside Commode # Voids 1 - Exam Gen.: Patient is alert and oriented 3, no acute distress, morbidly obese Cardiovascular: Regular rate and rhythm, S1/S2 Lungs: Bilateral crackles Abdomen: Soft nontender nondistended positive bowel sounds Extremities: 2+ pitting edema - Labs CBC & Chem 7: 07/26/17 06:11 07/27/17 06:37 Labs: Abnormal Lab Results - Last 24 Hours (Table) 07/26/17 07/27/17 Range/Units 06:11 06:37 BUN 53 H (9-20) mg/dL Creatinine 2.20 H (0.66-1.25) mg/dL Glucose 102 H (74-99) mg/dL Hemoglobin A1c 7.1 H (4.0-6.0) % Assessment and Plan Assessment: Acute exacerbation of CHF, EF 40-45%, systolic Pulmonary edema, fluid overload NSTEMI Doubt pneumonia Leukocytosis likely secondary to steroids Eosinophilic asthma Chronic kidney disease stage IV Suspect underlying HERIBERTO History of Afib Morbid obesity Elevated eosinophil and IgE levels Continue DuoNebs Q6 hours and as needed. Budesonide is scheduled for twice a day will be discontinued, patient states he is intolerant of this medication, it makes him dry-heave. Steroid taper quickly. Diuresis with Lasix, I/O, daily weight, repeat limited echo. Cardiology and nephrology both on board and appreciate recommendations. Patient could benefit from a sleep study however he did state that he had one approximately 3-4 years ago however he has gained more weight since then. Could consider biologic as outpatient for eos/IgE asthma. Discontinue ABX, patient refusing and doubt pneumonia. Repeat CXR in AM. Continue with pulmonary hygiene and supportive care. Continue to encourage incentive spirometer. We will continue to follow with labs and reports and adjust treatment as necessary. I performed an examination of the patient and discussed their management with the nurse practitioner. I have reviewed the nurse practitioner's note and agree with the documented findings and plan of care.
[2017-07-27] MEDS: AMMONIUM LACTATE 12% CREAM 140 GM TUBE TOPICAL SCH ×2 (09:59→19:56)
[2017-07-27] MEDS ORDERED: HYDROcodone/APAP 5-325MG 1 EACH TAB PO PRN (14:14)
--- NOTE | 2017-07-27 14:15 | P.PN ---
Subjective Progress Note Date: 07/27/17 07/25/2017-Note per Dr. Schroeder Jim is an 76-year-old white male well-known to me. He has a significant history of multiple medical comorbidities including atrial fibrillation coronary artery disease, hypothyroidism and hypertension. He was hospitalized last month for pneumonia. He's been home but a month. He was seen in the office for increasing cough and weakness. He was on Augmentin and steroids. She presented to the emergency room last night with increasing weakness and fatigue. He is currently resting on the stepdown unit. He indicates he just doesn't have any energy. He also complains of worsening of his restless leg syndrome. He stopped his Requip as he felt it wasn't helping. He denies any chest pain, has ongoing shortness of breath with exertion, denies any nausea, vomiting. indicates he has gained 12 pounds over the past several weeks. 07/26/2017 Patient seen and examined on rounds with Dr. Posey. Patient states he has restless leg syndrome that has been bothering him. Patient was previously prescribed Requip but he states that he quit taking it. Patient was started on Mirapex yesterday per Dr. Schroeder. Patient denies chest pain or pressure. Denies shortness of breath at rest. Chest x-ray this morning reveals cardiomegaly with central vascular congestion and interstitial edema suggestive of congestive heart failure. Patient remains on Lasix 40 mg IV every 12 hours. Pulmonology is on consult. Patient steroids have been transitioned to oral. Antibiotics have also been discontinued per pulmonary. Patient states he would like to go somewhere for rehab at the time of discharge. 07/27/2017 Patient seen and examined on rounds with Dr. Posey. Chest x-ray this morning reveals evidence of congestive heart failure. Patient remains on Lasix 40 mg IV every 12 hours. Nephrology is on consult and recommends to continue Lasix IV twice a day. Pulmonary is on consult. Patient's steroids have been transitioned to oral and patient currently taking 40 mg by mouth daily. WBC is 12.7, down from 14.7. Hemoglobin is stable at 10.1. BUN 53. Creatinine 2.20. Patient's TSH is 7.990. Previous TSH from last month was 11.100. Patient is currently taking 112mcg of Synthroid. Patients states his dose was just increased about three weeks ago to 112mcg from 100mcg. Will continue current dose and repeat TSH in 3-4 weeks. Patient is requesting to go back on his Requip. states he was taking it since May and it was really helping for awhile but then they stopped taking it on their own instead of asking for the dose to be increased. Patient was prescribed [place] 10 last night and was very lethargic this morning and has since been discontinued. Objective - Vital Signs Vital signs: Vital Signs Temp 97.9 F 07/27/17 07:36 Pulse 72 07/27/17 08:14 Resp 18 07/27/17 08:00 BP 121/56 07/27/17 07:36 Pulse Ox 93 L 07/27/17 07:36 Intake & Output 07/26/17 07/27/17 07/27/17 18:59 06:59 18:59 Intake Total 380 270 10 Output Total 1700 Balance 380 -1430 10 Weight 113.1 kg 112.3 kg Intake: IV 20 30 10 Invasive Line 2 20 30 10 Oral 360 240 Output: Urine 1700 Other: Voiding Method Bedside Commode Bedside Commode Bedside Commode # Voids 1 - Exam GENERAL: This is a 76-year-old male in no apparent distress at the time of examination. HEENT: Head is atraumatic, normocephalic. Pupils are equal, round, and reactive to light. Sclerae anicteric. Conjunctivae are clear. Mucus membranes of the mouth are moist. Neck is supple. RESPIRATORY: Diminished at the bases with fine rales bilaterally. No use of accessory muscles. Patient maintaining oxygen saturation greater than 92%. No chest wall tenderness is noted on palpation or with deep breathing. CARDIOVASCULAR: Regular rate and rhythm. S1 and S2 noted. No systolic or diastolic murmur auscultated. No JVD noted. No S3 or S4 noted. GASTROINTESTINAL: No distention noted. Abdomen soft and round. Normal active bowel sounds auscultated x 4 quadrants. No pain or tenderness noted upon palpation. INTEGUMENTARY: No cyanosis. No jaundice. No rashes noted. No cellulitis noted. EXTREMITIES: 2+ peripheral pulses. 2+ bilateral lower extremity edema. No calf tenderness noted. NEUROLOGIC: Cranial nerves II-XII intact. PSYCHIATRIC: Awake, alert, and oriented X 3. Appropriate affect. Intact judgement and insight. - Labs CBC & Chem 7: 07/26/17 06:11 07/27/17 06:37 Labs: Abnormal Lab Results - Last 24 Hours (Table) 07/26/17 07/27/17 Range/Units 06:11 06:37 BUN 53 H (9-20) mg/dL Creatinine 2.20 H (0.66-1.25) mg/dL Glucose 102 H (74-99) mg/dL Hemoglobin A1c 7.1 H (4.0-6.0) % Assessment and Plan Plan: ASSESSMENT: Acute exacerbation of systolic congestive heart failure, EF 40-45% Elevated troponins, NSTEMI ruled out per cardiology, may be secondary to underlying renal failure or congestive heart failure Leukocytosis, likely secondary to steroids, no evidence of sepsis Chronic kidney disease, stage IV Coronary artery disease with previous CABG Chronic atrial fibrillation Generalized weakness and weight gain related to long-term steroid use Anemia of chronic disease Hypothyroidism with elevated TSH, synthroid dose was increased 3 weeks ago Morbid obesity: BMI 40.2 PLAN: Nephrology on consult. Appreciate recommendations and input Continue Lasix IV 40 mg every 12 hours Pulmonary on consult. Appreciate recommendations and input Steroids transitioned to oral per pulmonary. Taper per pulmonary Antibiotics discontinued per pulmonary as pneumonia is unlikely Repeat chest x-ray in a.m. Cardiology on consult. Appreciate recommendations and input Continue current dose of Synthroid as patients dose was just increased 3 weeks ago. Repeat TSH in 3-4 weeks Discontinue Mirapex per patient request. Patient requesting to restart Requip Patient states he was given samples of Myrbetriq recently from PCP. [facility] pharmacy does not carry Myrbetriq. to bring in medication from home. [place] 10 has been discontinued. Continue Tylenol for pain PRN. If patients pain is severe, may use [place] 5 PRN Q8 hours. Home meds as appropriate Monitor labs GI prophylaxis: Protonix 40 mg PO Daily DVT prophylaxis: Eliquis 2.5mg PO BID Monitor vital signs and address as appropriate PT/OT Dr. Jacobs on consult for possible inpatient rehab at the time of discharge Further recommendations pending patient's course Nurse practitioner note has been reviewed by physician. Signing provider agrees with the documented findings, assessment, and plan of care.
[2017-07-27] MEDS: SODIUM CHLORIDE 0.9% 1,000 ML IV SCH (15:07)
[2017-07-27 16:56] LABS: Glucose,Whole Blood 289 mg/dL (75-99)
[2017-07-27] MEDS: CHOLECALCIFEROL 1,000 UNIT TAB PO SCH (19:56)
[2017-07-27] MEDS: ATORVASTATIN 40 MG TAB PO SCH (19:56)
[2017-07-27] MEDS: MONTELUKAST 10 MG TAB PO SCH (19:57)
[2017-07-27 20:29] LABS: Glucose,Whole Blood 205 mg/dL (75-99)
[2017-07-28] MEDS: ALPRAZolam 0.25 MG TAB PO PRN (01:45)
[2017-07-28 05:40] LABS: Glucose,Whole Blood 163 mg/dL (75-99)
[2017-07-28 06:08] LABS: Anisocytosis Slight; Basophils % (A) 0 %; Eosinophils # (A) 0.2 k/uL (0-0.7); Eosinophils % (A) 1 %; HCT 29.9 % (39.0-53.0); HGB 9.5 gm/dL (13.0-17.5); Hypochromasia Moderate; Lymphocytes # (A) 0.9 k/uL (1.0-4.8); Lymphocytes % (A) 8 %; MCH 28.8 pg (25.0-35.0); MCHC 31.9 g/dL (31.0-37.0); MCV 90.3 fL (80.0-100.0); Mean Platelet Volume 9.2; Monocytes # (A) 0.4 k/uL (0-1.0); Monocytes % (A) 4 %; Neutrophils % (A) 85 %; Platelet Count 106 k/uL (150-450); Poikilocytosis Slight; RBC 3.31 m/uL (4.30-5.90); RDW 18.6 % (11.5-15.5); WBC 10.5 k/uL (3.8-10.6)
[2017-07-28 06:27] LABS: Calcium 8.9 mg/dL (8.4-10.2); Magnesium 1.9 mg/dL (1.6-2.3); Potassium 3.6 mmol/L (3.5-5.1)
[2017-07-28] MEDS ORDERED: LEVOTHYROXINE 125 MCG TAB PO SCH (06:30)
[2017-07-28] MEDS: PANTOPRAZOLE 40 MG TABLET PO SCH (06:37)
[2017-07-28] MEDS: INSULIN ASPART 100 UNIT/ML 1 ML 10 ML VIAL SQ SCH ×4 (06:37→21:15)
--- NOTE | 2017-07-28 07:30 | XR ---
EXAMINATION TYPE: XR chest 2V DATE OF EXAM: 07/28/2017 COMPARISON: 07/27/2017 HISTORY: 76-year-old male CHF and shortness of breath TECHNIQUE: Frontal and lateral views FINDINGS: Median sternotomy wires are present with post-CABG clips in the mediastinum. Heart mildly enlarged. T here is interstitial densities persist. Perihilar and bibasilar opacities slightly increased in the i nterval. No significant pleural effusion. AC degenerative change left shoulder. Partially visualized right shoulder replacement. IMPRESSION: Cardiomegaly and worsening interstitial changes with developing basilar airspace disease. Correlate f or worsening CHF. Atypical in that no pleural effusions are seen on the lateral view.
[2017-07-28] MEDS: IPRATROPIUM-ALBUTEROL 3 ML NEB INHALATION PRN ×4 (07:46→19:09)
[2017-07-28] MEDS ORDERED: POTASSIUM CHLORIDE ER 20 MEQ TAB.ER PO STA (09:34)
--- NOTE | 2017-07-28 09:47 | P.PN ---
<Karely Larkin E - Last Filed: 07/28/17 09:43> Subjective Progress Note Date: 07/28/17 HPI: This is a 76-year-old gentleman who presented to the emergency department with fatigue, shortness of breath, generalized weakness. The patient states this is been ongoing for over a week. He was started on Augmentin as an outpatient. He was also given an injection antibiotic. He states that he has gained about 12 pounds in the last few weeks. His is concerned that this might be due to the high-dose steroids he's been on. The patient complains of shortness of breath with minimal exertion. He denies fevers and chills. He denies cough productive of sputum. He is currently on room air. His chest x-ray does show pulmonary edema. He also had elevated troponins. 07/27/17- patient is being seen examined and evaluated today on rounds. The patient appears very sleepy resting up in bed on room air. states she is concerned that the patient did receive Arbyrd and it is too much for him. The patient only takes extra strength Tylenol at home she would like him to be put back on the Tylenol rather than use Arbyrd. His chest x-ray has been reviewed and still is consistent with CHF. He continues on Lasix 40 mg twice a day. Apparently the patient refused his a.m. dose of IV Lasix, the importance of receiving his Lasix in regards to his heart failure has been discussed with him , is in agreeing to take it at this time. Discussed this with his nurse as well and his a.m. dose will be given now. 07/28/17- patient is being seen examined and evaluated today on rounds. The patient's chest x-ray was reviewed and does reveal some worsening in his CHF. However the patient states he actually is feeling somewhat better today. He has a negative fluid balance and his weight has decreased as well. Case is discussed with nephrology and he will continue to be diuresed, kidneys are at baseline. We'll order echo for the patient. Objective - Vital Signs Vital signs: Vital Signs Temp 96.8 F L 07/28/17 08:00 Pulse 71 07/28/17 08:00 Resp 20 07/28/17 08:00 BP 120/70 07/28/17 08:00 Pulse Ox 93 L 07/28/17 08:00 Intake & Output 07/27/17 07/28/17 07/28/17 18:59 06:59 18:59 Intake Total 150 240 Output Total 900 1150 300 Balance -750 -1150 -60 Weight 110 kg Intake: IV 30 Invasive Line 2 30 Oral 120 240 Output: Urine 900 1150 300 Other: Voiding Method Bedside Commode Bedside Commode Bedside Commode # Voids 1 2 # Bowel Movements 0 0 - Exam Gen.: Patient is alert and oriented 3, no acute distress, morbidly obese Cardiovascular: Regular rate and rhythm, S1/S2 Lungs: Bilateral crackles Abdomen: Soft nontender nondistended positive bowel sounds Extremities: 2+ pitting edema - Labs CBC & Chem 7: 07/28/17 05:50 07/28/17 05:50 Labs: Abnormal Lab Results - Last 24 Hours (Table) 07/27/17 07/27/17 07/28/17 Range/Units 16:54 20:28 05:38 RBC (4.30-5.90) m/uL Hgb (13.0-17.5) gm/dL Hct (39.0-53.0) % RDW (11.5-15.5) % Plt Count (150-450) k/uL Neutrophils # (1.3-7.7) k/uL Lymphocytes # (1.0-4.8) k/uL BUN (9-20) mg/dL Creatinine (0.66-1.25) mg/dL Glucose (74-99) mg/dL POC Glucose (mg/dL) 289 H 205 H 163 H (75-99) mg/dL 07/28/17 07/28/17 Range/Units 05:50 05:50 RBC 3.31 L (4.30-5.90) m/uL Hgb 9.5 L (13.0-17.5) gm/dL Hct 29.9 L (39.0-53.0) % RDW 18.6 H (11.5-15.5) % Plt Count 106 L (150-450) k/uL Neutrophils # 9.0 H (1.3-7.7) k/uL Lymphocytes # 0.9 L (1.0-4.8) k/uL BUN 52 H (9-20) mg/dL Creatinine 2.24 H (0.66-1.25) mg/dL Glucose 152 H (74-99) mg/dL POC Glucose (mg/dL) (75-99) mg/dL Assessment and Plan Assessment: Acute exacerbation of CHF, EF 40-45%, systolic Pulmonary edema, fluid overload NSTEMI Doubt pneumonia Leukocytosis likely secondary to steroids Eosinophilic asthma Chronic kidney disease stage IV Suspect underlying HERIBERTO History of Afib Morbid obesity Elevated eosinophil and IgE levels Continue DuoNebs Q6 hours and as needed. Budesonide is scheduled for twice a day will be discontinued, patient states he is intolerant of this medication, it makes him dry-heave. Steroid taper quickly. Diuresis with Lasix, I/O, daily weight, Echocardiogram ordered Cardiology and nephrology both on board and appreciate recommendations. Patient could benefit from a sleep study however he did state that he had one approximately 3-4 years ago however he has gained more weight since then. Could consider biologic as outpatient for eos/IgE asthma. Discontinue ABX, patient refusing and doubt pneumonia. Continue with pulmonary hygiene and supportive care. Continue to encourage incentive spirometer. We will continue to follow with labs and reports and adjust treatment as necessary. I performed an examination of the patient and discussed their management with the nurse practitioner. I have reviewed the nurse practitioner's note and agree with the documented findings and plan of care. <Ludmila Titus A - Last Filed: 07/28/17 10:33> Objective - Vital Signs Vital signs: Vital Signs Temp 96.8 F L 07/28/17 08:00 Pulse 71 07/28/17 08:00 Resp 20 07/28/17 08:00 BP 120/70 07/28/17 08:00 Pulse Ox 93 L 07/28/17 08:00 Intake & Output 07/27/17 07/28/17 07/28/17 18:59 06:59 18:59 Intake Total 150 240 Output Total 900 1150 300 Balance -750 -1150 -60 Weight 110 kg Intake: IV 30 Invasive Line 2 30 Oral 120 240 Output: Urine 900 1150 300 Other: Voiding Method Bedside Commode Bedside Commode Bedside Commode # Voids 1 2 # Bowel Movements 0 0 - Labs CBC & Chem 7: 07/28/17 05:50 07/28/17 05:50 Labs: Abnormal Lab Results - Last 24 Hours (Table) 0307/27/17 07/28/17 Range/Units 16:54 20:28 05:38 RBC (4.30-5.90) m/uL Hgb (13.0-17.5) gm/dL Hct (39.0-53.0) % RDW (11.5-15.5) % Plt Count (150-450) k/uL Neutrophils # (1.3-7.7) k/uL Lymphocytes # (1.0-4.8) k/uL BUN (9-20) mg/dL Creatinine (0.66-1.25) mg/dL Glucose (74-99) mg/dL POC Glucose (mg/dL) 289 H 205 H 163 H (75-99) mg/dL 07/28/17 07/28/17 Range/Units 05:50 05:50 RBC 3.31 L (4.30-5.90) m/uL Hgb 9.5 L (13.0-17.5) gm/dL Hct 29.9 L (39.0-53.0) % RDW 18.6 H (11.5-15.5) % Plt Count 106 L (150-450) k/uL Neutrophils # 9.0 H (1.3-7.7) k/uL Lymphocytes # 0.9 L (1.0-4.8) k/uL BUN 52 H (9-20) mg/dL Creatinine 2.24 H (0.66-1.25) mg/dL Glucose 152 H (74-99) mg/dL POC Glucose (mg/dL) (75-99) mg/dL Assessment and Plan Assessment: Case discussed with nephrology, plan to increase Lasix and monitor CXR. Patient is not having worsening symptoms. Feels his breathing is improving. Will repeat echocardiogram. is at bedside and updated to plan of care. ~Ludmila Titus DO
--- NOTE | 2017-07-28 09:49 | P.PN ---
Subjective Patient is seen in follow-up for chronic kidney disease. Patient has chronic kidney disease stage IIIB/4 with baseline creatinine the range of 2-2.5. GFR is at baseline. Patient presented with generalized weakness and weight gain. Patient was receiving steroids on and off for nearly the past 2 months. He gained about 12 pounds over the last 2 months or so. He is noted to have an ejection fraction of 45% with moderate to severe mitral regurgitation. Currently maintained on Lasix 40 mg IV twice daily. Edema is improving. Denies chest pain or shortness of breath. Vital signs are stable. General: The patient appeared well nourished and normally developed. HEENT: Head exam is unremarkable. Neck is without jugular venous distension. LUNGS: Lungs are clear to auscultation and percussion. Breath sounds decreased. HEART: Rate and Rhythm are regular. First and second heart sounds normal. No murmurs, rubs or gallops. ABDOMEN: Abdominal exam reveals normal bowel sounds. Non-tender and non- distended. No evidence of peritonitis. EXTREMITITES: 1+ edema. Objective - Vital Signs Vital signs: Vital Signs Temp 96.8 F L 07/28/17 08:00 Pulse 71 07/28/17 08:00 Resp 20 07/28/17 08:00 BP 120/70 07/28/17 08:00 Pulse Ox 93 L 07/28/17 08:00 Intake & Output 07/27/17 07/28/17 07/28/17 18:59 06:59 18:59 Intake Total 150 240 Output Total 900 1150 300 Balance -750 -1150 -60 Weight 110 kg Intake: IV 30 Invasive Line 2 30 Oral 120 240 Output: Urine 900 1150 300 Other: Voiding Method Bedside Commode Bedside Commode Bedside Commode # Voids 1 2 # Bowel Movements 0 0 - Labs CBC & Chem 7: 07/28/17 05:50 07/28/17 05:50 Labs: Abnormal Lab Results - Last 24 Hours (Table) 07/27/17 07/27/17 07/28/17 Range/Units 16:54 20:28 05:38 RBC (4.30-5.90) m/uL Hgb (13.0-17.5) gm/dL Hct (39.0-53.0) % RDW (11.5-15.5) % Plt Count (150-450) k/uL Neutrophils # (1.3-7.7) k/uL Lymphocytes # (1.0-4.8) k/uL BUN (9-20) mg/dL Creatinine (0.66-1.25) mg/dL Glucose (74-99) mg/dL POC Glucose (mg/dL) 289 H 205 H 163 H (75-99) mg/dL 07/28/17 07/28/17 Range/Units 05:50 05:50 RBC 3.31 L (4.30-5.90) m/uL Hgb 9.5 L (13.0-17.5) gm/dL Hct 29.9 L (39.0-53.0) % RDW 18.6 H (11.5-15.5) % Plt Count 106 L (150-450) k/uL Neutrophils # 9.0 H (1.3-7.7) k/uL Lymphocytes # 0.9 L (1.0-4.8) k/uL BUN 52 H (9-20) mg/dL Creatinine 2.24 H (0.66-1.25) mg/dL Glucose 152 H (74-99) mg/dL POC Glucose (mg/dL) (75-99) mg/dL Assessment and Plan Plan: assessment: #1. Chronic kidney disease stage IV secondary to nephrosclerosis and nonrecovered ATN with baseline creatinine in the range of 2-2.5. GFR near baseline. #2. Generalized weakness and weight gain related to long-term steroid use. #3. Systolic CHF with ejection fraction of 45% with moderate to severe mitral regurgitation. Mildly decompensated. Chest x-ray looks worse today. #4. Anemia of chronic kidney disease maintained on Aranesp. #5. Chronic A. fib. Currently rate controlled. Cardiology following. #6. Hypokalemia secondary to diuresis. Magnesium replete. Plan: I will increase Lasix to 40 mg IV 3 times daily for the next 24 hours. Avoid nephrotoxic agents and hypotensive episodes. Pulmonology following. Steroids per their recommendations. Discontinue sodium bicarbonate. Repeat electrolytes in the morning. Replace potassium. 40 mEq today.
[2017-07-28] MEDS: ISOSORBIDE MONONITRATE ER 60 MG TAB.ER.24H PO SCH ×2 (10:32→20:30)
[2017-07-28] MEDS: guaiFENesin 600 MG TABLET.ER PO SCH ×2 (10:32→20:30)
[2017-07-28] MEDS: SODIUM BICARBONATE TAB 650 MG TAB PO SCH ×2 (10:32→20:30)
[2017-07-28] MEDS: METOPROLOL TARTRATE 12.5 MG TAB PO SCH ×2 (10:32→20:29)
[2017-07-28] MEDS: AMIODARONE 200 MG TAB PO SCH (10:32)
[2017-07-28] MEDS: cycloSPORINE 0.05% OPHTH 0.4 ML DROPERETTE BOTH EYES SCH ×2 (10:33→20:30)
[2017-07-28] MEDS: MULTIVITAMINS, THERA 1 EACH TAB PO SCH (10:33)
[2017-07-28] MEDS: predniSONE 20 MG TAB PO SCH (10:33)
[2017-07-28] MEDS: FERROUS SULFATE 325 MG TAB PO SCH ×2 (10:33→20:29)
[2017-07-28] MEDS: AMMONIUM LACTATE 12% CREAM 140 GM TUBE TOPICAL SCH ×2 (10:34→20:37)
[2017-07-28] MEDS: APIXABAN 2.5 MG TABLET PO SCH ×2 (10:34→20:30)
[2017-07-28] MEDS: LACTOBACILLUS ACIDOPH & BULGAR 1 EACH PACKET PO SCH (10:34)
[2017-07-28] MEDS ORDERED: FUROSEMIDE 10 MG/ML 4 ML VIAL IV STA (10:41)
[2017-07-28 11:45] LABS: Glucose,Whole Blood 199 mg/dL (75-99)
[2017-07-28] MEDS ORDERED: DARBEPOETIN ALFA 40 MCG/0.4 ML SYRINGE SQ SCH (12:00)
--- NOTE | 2017-07-28 12:35 | ECHOF ---
Referral Reason:CHF MEASUREMENTS -------- HEIGHT: 167.6 cm WEIGHT: 109.8 kg BP: RVIDd: 4.3 cm (< 3.3) IVSd: 1.2 cm (0.6 - 1.1) LVIDd: 3.6 cm (3.9 - 5.3) LVPWd: 1.0 cm (0.6 - 1.1) IVSs: 1.2 cm LVIDs: 3.1 cm LVPWs: 1.2 cm Ao Diam: 3.4 cm (2.0 - 3.7) AV Cusp: 0.9 cm (1.5 - 2.6) LA Diam: 4.7 cm (2.7 - 3.8) MV EXCURSION: 12.842 mm (> 18.000) MV EF SLOPE: 64 mm/s (70 - 150) EPSS: 1.2 cm MV E Tad: 1.42 m/s MV DecT: 268 ms MV A Tad: 0.95 m/s MV E/A Ratio: 1.50 AV maxP.22 mmHg AV meanP.99 mmHg AR PHT: 295 ms RAP: 5.00 mmHg RVSP: 53.51 mmHg FINDINGS -------- The left ventricular size is normal. Left ventricular wall thickness is normal. Overall left vent ricular systolic function is moderately impaired with, an EF between 35 - 40 %. Basal inferoseptal LV wall motion is hypokinetic. Mid inferoseptal LV wall motion is hypokinetic. Apical septum LV wall motion is hypokinetic. Basal inferolateral hypokinesis. The right ventricle is normal in size and function. Aortic valve is trileaflet and is moderately thickened. There is mild aortic stenosis present. Pe ak/mean gradient across the Aortic Valve is 19.22mmHg / 9.99mmHg. The mitral valve leaflets are mildly thickened. Mild mitral annular calcification present. Modera te mitral regurgitation is present. Mild tricuspid regurgitation present. There is mild to moderate pulmonary hypertension. The right ventricular systolic pressure, as measured by Doppler, is 53.51mmHg. Pulmonic valve appears structurally normal. CONCLUSIONS -------- 1. The left ventricular size is normal. 2. Left ventricular wall thickness is normal. 3. Basal inferoseptal LV wall motion is hypokinetic. 4. Mid inferoseptal LV wall motion is hypokinetic. 5. Apical septum LV wall motion is hypokinetic. 6. Basal inferolateral hypokinesis. 7. The right ventricle is normal in size and function. 8. Aortic valve is trileaflet and is moderately thickened. 9. There is mild aortic stenosis present. 10. Peak/mean gradient across the Aortic Valve is 19.22mmHg / 9.99mmHg. 11. The mitral valve leaflets are mildly thickened. 12. Mild mitral annular calcification present. 13. Mild tricuspid regurgitation present. 14. There is mild to moderate pulmonary hypertension. 15. The right ventricular systolic pressure, as measured by Doppler, is 53.51mmHg. 16. Pulmonic valve appears structurally normal. [employer]ATT[employer] MANAGER: Bettie Stapleton RDCS
--- NOTE | 2017-07-28 13:33 | P.PN ---
Subjective Progress Note Date: 07/28/17 07/25/2017-Note per Dr. Schroeder Jim is an 76-year-old white male well-known to me. He has a significant history of multiple medical comorbidities including atrial fibrillation coronary artery disease, hypothyroidism and hypertension. He was hospitalized last month for pneumonia. He's been home but a month. He was seen in the office for increasing cough and weakness. He was on Augmentin and steroids. She presented to the emergency room last night with increasing weakness and fatigue. He is currently resting on the stepdown unit. He indicates he just doesn't have any energy. He also complains of worsening of his restless leg syndrome. He stopped his Requip as he felt it wasn't helping. He denies any chest pain, has ongoing shortness of breath with exertion, denies any nausea, vomiting. indicates he has gained 12 pounds over the past several weeks. 07/26/2017 Patient seen and examined on rounds with Dr. Posey. Patient states he has restless leg syndrome that has been bothering him. Patient was previously prescribed Requip but he states that he quit taking it. Patient was started on Mirapex yesterday per Dr. Schroeder. Patient denies chest pain or pressure. Denies shortness of breath at rest. Chest x-ray this morning reveals cardiomegaly with central vascular congestion and interstitial edema suggestive of congestive heart failure. Patient remains on Lasix 40 mg IV every 12 hours. Pulmonology is on consult. Patient steroids have been transitioned to oral. Antibiotics have also been discontinued per pulmonary. Patient states he would like to go somewhere for rehab at the time of discharge. 07/27/2017 Patient seen and examined on rounds with Dr. Posey. Chest x-ray this morning reveals evidence of congestive heart failure. Patient remains on Lasix 40 mg IV every 12 hours. Nephrology is on consult and recommends to continue Lasix IV twice a day. Pulmonary is on consult. Patient's steroids have been transitioned to oral and patient currently taking 40 mg by mouth daily. WBC is 12.7, down from 14.7. Hemoglobin is stable at 10.1. BUN 53. Creatinine 2.20. Patient's TSH is 7.990. Previous TSH from last month was 11.100. Patient is currently taking 112mcg of Synthroid. Patients states his dose was just increased about three weeks ago to 112mcg from 100mcg. Will continue current dose and repeat TSH in 3-4 weeks. Patient is requesting to go back on his Requip. states he was taking it since May and it was really helping for awhile but then they stopped taking it on their own instead of asking for the dose to be increased. Patient was prescribed [place] 10 last night and was very lethargic this morning and has since been discontinued. 07/28/2017 Patient seen and examined on rounds with Dr. Posey. Spouse is at the bedside. Patient denies chest pain or pressure. Reports dyspnea with exertion. Denies nausea or vomiting. Repeat chest x-ray this morning reveals cardiomegaly and worsening interstitial changes with developing basilar airspace disease. Correlate for worsening CHF. Patient remains on Lasix 40 mg IV every 12 hours. Nephrology and pulmonology are on consult. Objective - Vital Signs Vital signs: Vital Signs Temp 96.8 F L 07/28/17 08:00 Pulse 74 07/28/17 11:22 Resp 20 07/28/17 08:00 BP 120/70 07/28/17 08:00 Pulse Ox 93 L 07/28/17 08:00 Intake & Output 07/27/17 07/28/17 07/28/17 18:59 06:59 18:59 Intake Total 150 240 Output Total 900 1150 300 Balance -750 -1150 -60 Weight 110 kg Intake: IV 30 Invasive Line 2 30 Oral 120 240 Output: Urine 900 1150 300 Other: Voiding Method Bedside Commode Bedside Commode Bedside Commode # Voids 1 2 # Bowel Movements 0 0 - Exam GENERAL: This is a 76-year-old male in no apparent distress at the time of examination. HEENT: Head is atraumatic, normocephalic. Pupils are equal, round, and reactive to light. Sclerae anicteric. Conjunctivae are clear. Mucus membranes of the mouth are moist. Neck is supple. RESPIRATORY: Diminished at the bases with rales bilaterally. No use of accessory muscles. Patient maintaining oxygen saturation greater than 92%. No chest wall tenderness is noted on palpation or with deep breathing. CARDIOVASCULAR: Regular rate and rhythm. S1 and S2 noted. No systolic or diastolic murmur auscultated. No JVD noted. No S3 or S4 noted. GASTROINTESTINAL: No distention noted. Abdomen soft and round. Normal active bowel sounds auscultated x 4 quadrants. No pain or tenderness noted upon palpation. INTEGUMENTARY: No cyanosis. No jaundice. No rashes noted. No cellulitis noted. EXTREMITIES: 2+ peripheral pulses. 2+ bilateral lower extremity edema. No calf tenderness noted. NEUROLOGIC: Cranial nerves II-XII intact. PSYCHIATRIC: Awake, alert, and oriented X 3. Appropriate affect. Intact judgement and insight. - Labs CBC & Chem 7: 07/28/17 05:50 07/28/17 05:50 Labs: Abnormal Lab Results - Last 24 Hours (Table) 07/27/17 07/27/17 07/28/17 Range/Units 16:54 20:28 05:38 RBC (4.30-5.90) m/uL Hgb (13.0-17.5) gm/dL Hct (39.0-53.0) % RDW (11.5-15.5) % Plt Count (150-450) k/uL Neutrophils # (1.3-7.7) k/uL Lymphocytes # (1.0-4.8) k/uL BUN (9-20) mg/dL Creatinine (0.66-1.25) mg/dL Glucose (74-99) mg/dL POC Glucose (mg/dL) 289 H 205 H 163 H (75-99) mg/dL 07/28/17 07/28/17 07/28/17 Range/Units 05:50 05:50 11:43 RBC 3.31 L (4.30-5.90) m/uL Hgb 9.5 L (13.0-17.5) gm/dL Hct 29.9 L (39.0-53.0) % RDW 18.6 H (11.5-15.5) % Plt Count 106 L (150-450) k/uL Neutrophils # 9.0 H (1.3-7.7) k/uL Lymphocytes # 0.9 L (1.0-4.8) k/uL BUN 52 H (9-20) mg/dL Creatinine 2.24 H (0.66-1.25) mg/dL Glucose 152 H (74-99) mg/dL POC Glucose (mg/dL) 199 H (75-99) mg/dL Assessment and Plan Plan: ASSESSMENT: Acute exacerbation of systolic congestive heart failure, EF 40-45% Elevated troponins, NSTEMI ruled out per cardiology, may be secondary to underlying renal failure or congestive heart failure Leukocytosis, likely secondary to steroids, no evidence of sepsis Chronic kidney disease, stage IV Coronary artery disease with previous CABG Chronic atrial fibrillation Generalized weakness and weight gain related to long-term steroid use Anemia of chronic disease Hypothyroidism with elevated TSH, synthroid dose was increased 3 weeks ago Morbid obesity: BMI 40.2 PLAN: Nephrology on consult. Appreciate recommendations and input Lasix increased to 40 mg 3 times a day 24 hours per nephrology Await results of echo Pulmonary on consult. Appreciate recommendations and input Steroids transitioned to oral per pulmonary. Taper per pulmonary Antibiotics discontinued per pulmonary as pneumonia is unlikely Repeat chest x-ray in a.m. Cardiology was on consult but has signed off. Will reconsult cardiology Continue current dose of Synthroid as patients dose was just increased 3 weeks ago. Repeat TSH in 3-4 weeks Mirapex discontinued per patient request. continue Requip per patient request. Patient states he was given samples of Myrbetriq recently from PCP. [facility] pharmacy does not carry Myrbetriq. to bring in medication from home. [place] 10 has been discontinued. Continue Tylenol for pain PRN. If patients pain is severe, may use [place] 5 PRN Q8 hours. Home meds as appropriate Monitor labs GI prophylaxis: Protonix 40 mg PO Daily DVT prophylaxis: Eliquis 2.5mg PO BID Monitor vital signs and address as appropriate PT/OT Dr. Jacobs on consult for possible inpatient rehab at the time of discharge Further recommendations pending patient's course Nurse practitioner note has been reviewed by physician. Signing provider agrees with the documented findings, assessment, and plan of care.
[2017-07-28] MEDS: FUROSEMIDE 10 MG/ML 4 ML VIAL IV SCH ×3 (13:42→21:15)
[2017-07-28] MEDS: SODIUM CHLORIDE 0.9% 1,000 ML IV SCH (15:44)
[2017-07-28 16:40] LABS: Glucose,Whole Blood 207 mg/dL (75-99)
[2017-07-28] MEDS: ATORVASTATIN 40 MG TAB PO SCH (20:30)
[2017-07-28] MEDS: DOCUSATE 100 MG CAP PO SCH (20:30)
[2017-07-28] MEDS: MONTELUKAST 10 MG TAB PO SCH (20:30)
[2017-07-28] MEDS: CHOLECALCIFEROL 1,000 UNIT TAB PO SCH (20:30)
[2017-07-28 20:45] LABS: Glucose,Whole Blood 247 mg/dL (75-99)
[2017-07-29] MEDS: ALPRAZolam 0.25 MG TAB PO PRN ×3 (03:31→19:40)
[2017-07-29 06:07] LABS: Glucose,Whole Blood 140 mg/dL (75-99)
[2017-07-29] MEDS: INSULIN ASPART 100 UNIT/ML 1 ML 10 ML VIAL SQ SCH ×4 (06:21→21:49)
[2017-07-29] MEDS: LEVOTHYROXINE 112 MCG TAB PO SCH (06:21)
[2017-07-29] MEDS: PANTOPRAZOLE 40 MG TABLET PO SCH (06:22)
[2017-07-29] MEDS: IPRATROPIUM-ALBUTEROL 3 ML NEB INHALATION PRN ×4 (07:14→20:10)
[2017-07-29 08:10] LABS: Calcium 9.5 mg/dL (8.4-10.2); Potassium 4.3 mmol/L (3.5-5.1)
[2017-07-29] MEDS: DOCUSATE 100 MG CAP PO SCH ×2 (08:41→21:51)
[2017-07-29] MEDS: ISOSORBIDE MONONITRATE ER 60 MG TAB.ER.24H PO SCH ×2 (08:41→21:52)
[2017-07-29] MEDS: SODIUM BICARBONATE TAB 650 MG TAB PO SCH ×2 (08:41→21:52)
[2017-07-29] MEDS: LACTOBACILLUS ACIDOPH & BULGAR 1 EACH PACKET PO SCH (08:41)
[2017-07-29] MEDS: AMIODARONE 200 MG TAB PO SCH (08:42)
[2017-07-29] MEDS: MULTIVITAMINS, THERA 1 EACH TAB PO SCH (08:42)
[2017-07-29] MEDS: AMMONIUM LACTATE 12% CREAM 140 GM TUBE TOPICAL SCH ×2 (08:42→22:36)
[2017-07-29] MEDS: cycloSPORINE 0.05% OPHTH 0.4 ML DROPERETTE BOTH EYES SCH ×2 (08:42→21:52)
[2017-07-29] MEDS: FUROSEMIDE 10 MG/ML 4 ML VIAL IV SCH (08:42)
[2017-07-29] MEDS: METOPROLOL TARTRATE 12.5 MG TAB PO SCH ×2 (08:42→21:52)
[2017-07-29] MEDS: APIXABAN 2.5 MG TABLET PO SCH ×2 (08:42→21:51)
[2017-07-29] MEDS: predniSONE 20 MG TAB PO SCH (08:43)
[2017-07-29] MEDS: guaiFENesin 600 MG TABLET.ER PO SCH ×2 (08:43→21:52)
[2017-07-29] MEDS: FERROUS SULFATE 325 MG TAB PO SCH ×2 (08:43→21:51)
--- NOTE | 2017-07-29 09:42 | XR ---
EXAMINATION TYPE: XR chest 2V DATE OF EXAM: 07/29/2017 COMPARISON: Chest x-ray from yesterday. HISTORY: History of CHF with shortness of breath. TECHNIQUE: Frontal and lateral views of the chest are obtained. FINDINGS: There is cardiomegaly with moderate central vascular congestion. There is no pleural effus ion or pneumothorax seen bilaterally. Overlying sternal wires and mediastinal clips are present. [place] llic hardware from right shoulder surgery is partially imaged. There is advanced degenerative change left glenohumeral joint redemonstrated. IMPRESSION: Findings consistent with CHF exacerbation remain present as there is cardiomegaly with m oderate central vascular congestion that is again seen. No significant change from one day earlier.
--- NOTE | 2017-07-29 09:49 | P.PN ---
Subjective Patient is seen in follow-up for chronic kidney disease. Patient has chronic kidney disease stage IIIB/4 with baseline creatinine the range of 2-2.5. GFR is at baseline. Patient presented with generalized weakness and weight gain. Patient was receiving steroids on and off for nearly the past 2 months. He gained about 12 pounds over the last 2 months or so. He is noted to have an ejection fraction of 35-40% with mild to moderate pulmonary hypertension. Currently maintained on Lasix 40 mg IV three daily. Edema is improving. Denies chest pain or shortness of breath. Vital signs are stable. General: The patient appeared well nourished and normally developed. HEENT: Head exam is unremarkable. Neck is without jugular venous distension. LUNGS: Lungs are clear to auscultation and percussion. Breath sounds decreased. HEART: Rate and Rhythm are regular. First and second heart sounds normal. No murmurs, rubs or gallops. ABDOMEN: Abdominal exam reveals normal bowel sounds. Non-tender and non- distended. No evidence of peritonitis. EXTREMITITES: 1+ edema. Objective - Vital Signs Vital signs: Vital Signs Temp 96.2 F L 07/29/17 08:00 Pulse 78 07/29/17 08:00 Resp 16 07/29/17 08:00 BP 125/72 07/29/17 08:00 Pulse Ox 98 07/29/17 08:00 Intake & Output 07/28/17 07/29/17 07/29/17 18:59 06:59 18:59 Intake Total 530 240 Output Total 1800 1300 Balance -1270 -1060 Weight 110.7 kg Intake: Oral 530 240 Output: Urine 1800 1300 Other: Voiding Method Bedside Commode Bedside Commode # Voids 3 # Bowel Movements 1 - Labs CBC & Chem 7: 07/28/17 05:50 07/29/17 07:02 Labs: Abnormal Lab Results - Last 24 Hours (Table) 07/28/17 07/28/17 07/28/17 Range/Units 11:43 16:38 20:43 BUN (9-20) mg/dL Creatinine (0.66-1.25) mg/dL Glucose (74-99) mg/dL POC Glucose (mg/dL) 199 H 207 H 247 H (75-99) mg/dL 07/29/17 07/29/17 Range/Units 06:05 07:02 BUN 56 H (9-20) mg/dL Creatinine 2.37 H (0.66-1.25) mg/dL Glucose 127 H (74-99) mg/dL POC Glucose (mg/dL) 140 H (75-99) mg/dL Assessment and Plan Plan: assessment: #1. Chronic kidney disease stage IV secondary to nephrosclerosis and nonrecovered ATN with baseline creatinine in the range of 2-2.5. GFR near baseline. #2. Generalized weakness and weight gain related to long-term steroid use. #3. Systolic CHF with ejection fraction of 45% with moderate to severe mitral regurgitation. Mildly decompensated. Chest x-ray looks worse today. #4. Anemia of chronic kidney disease maintained on Aranesp. #5. Chronic A. fib. Currently rate controlled. Cardiology following. #6. Hypokalemia secondary to diuresis. Magnesium replete. Improved post replacement. Plan: Decreased Lasix to 40 mg IV twice daily - can be changed to oral upon discharge. Avoid nephrotoxic agents and hypotensive episodes. Pulmonology following. Steroids per their recommendations. Discontinued sodium bicarbonate. Anticipate discharge soon. He can go home on Lasix 40 mg orally twice daily. He will need to get a BMP checked within 2-3 days of discharge and follow-up as an outpatient in the next 1-2 weeks. I advised him to monitor his weights daily and to call office if more than 2-3 pound weight gain.
[2017-07-29 11:29] LABS: Glucose,Whole Blood 179 mg/dL (75-99)
--- NOTE | 2017-07-29 12:03 | PN ---
PROGRESS NOTE He was seen again on 07/29/2017. He has been hemodynamically stable. He is less short of breath and feels better overall. He is on 40 mg of prednisone, bronchodilators. On physical examination, respiratory rate is 16, pulse rate of 78, temperature 96.2, blood pressure 125/72, O2 saturation on room air is 98%. HEENT is unremarkable. Chest reveals faint wheeze. Cardiovascular system reveals an S1, S2. Abdomen is soft. There is 1+ pedal edema. IMPRESSION AT THIS TIME: 1. Acute exacerbation of congestive heart failure with pulmonary edema. 2. Leukocytosis secondary to steroids. Continue budesonide, bronchodilators. Continue optimizing fluid status. Consider biologic as an outpatient because of eosinophilic phenotype and elevated immunoglobulin E. Increase his activity level. Prognosis is fair. Will need close outpatient followups. MMODL / IJN: [id number] /
--- NOTE | 2017-07-29 12:48 | P.PN ---
Subjective Progress Note Date: 07/29/17 07/25/2017-Note per Dr. Schroeder Jim is an 76-year-old white male well-known to me. He has a significant history of multiple medical comorbidities including atrial fibrillation coronary artery disease, hypothyroidism and hypertension. He was hospitalized last month for pneumonia. He's been home but a month. He was seen in the office for increasing cough and weakness. He was on Augmentin and steroids. She presented to the emergency room last night with increasing weakness and fatigue. He is currently resting on the stepdown unit. He indicates he just doesn't have any energy. He also complains of worsening of his restless leg syndrome. He stopped his Requip as he felt it wasn't helping. He denies any chest pain, has ongoing shortness of breath with exertion, denies any nausea, vomiting. indicates he has gained 12 pounds over the past several weeks. 07/26/2017 Patient seen and examined on rounds with Dr. Posey. Patient states he has restless leg syndrome that has been bothering him. Patient was previously prescribed Requip but he states that he quit taking it. Patient was started on Mirapex yesterday per Dr. Schroeder. Patient denies chest pain or pressure. Denies shortness of breath at rest. Chest x-ray this morning reveals cardiomegaly with central vascular congestion and interstitial edema suggestive of congestive heart failure. Patient remains on Lasix 40 mg IV every 12 hours. Pulmonology is on consult. Patient steroids have been transitioned to oral. Antibiotics have also been discontinued per pulmonary. Patient states he would like to go somewhere for rehab at the time of discharge. 07/27/2017 Patient seen and examined on rounds with Dr. Posey. Chest x-ray this morning reveals evidence of congestive heart failure. Patient remains on Lasix 40 mg IV every 12 hours. Nephrology is on consult and recommends to continue Lasix IV twice a day. Pulmonary is on consult. Patient's steroids have been transitioned to oral and patient currently taking 40 mg by mouth daily. WBC is 12.7, down from 14.7. Hemoglobin is stable at 10.1. BUN 53. Creatinine 2.20. Patient's TSH is 7.990. Previous TSH from last month was 11.100. Patient is currently taking 112mcg of Synthroid. Patients states his dose was just increased about three weeks ago to 112mcg from 100mcg. Will continue current dose and repeat TSH in 3-4 weeks. Patient is requesting to go back on his Requip. states he was taking it since May and it was really helping for awhile but then they stopped taking it on their own instead of asking for the dose to be increased. Patient was prescribed [place] 10 last night and was very lethargic this morning and has since been discontinued. 07/28/2017 Patient seen and examined on rounds with Dr. Posey. Spouse is at the bedside. Patient denies chest pain or pressure. Reports dyspnea with exertion. Denies nausea or vomiting. Repeat chest x-ray this morning reveals cardiomegaly and worsening interstitial changes with developing basilar airspace disease. Correlate for worsening CHF. Patient remains on Lasix 40 mg IV every 12 hours. Nephrology and pulmonology are on consult. 07/29/2017 Patient seen and examined at the bedside. Spouse present. Patient states his breathing feels significantly better today. Patient states the requip is helping his restless legs and he slept very well last night. Patient does report restless leg sensation this morning. Patient states he was ambulated in the hallway yesterday. Patient reports dry nonproductive cough. Patient states he is using his incentive spirometer occasionally. Encouraged patient to use 10 times an hour. Xray this morning reveals CHF. Patients lasix was decreased to 40mg IV q 12 per nephrology. Patient was reevaluated by therapy who now recommends home with home care instead of rehab facility. Patient is anxious to be discharged home. Objective - Vital Signs Vital signs: Vital Signs Temp 96.2 F L 07/29/17 08:00 Pulse 78 07/29/17 08:00 Resp 16 07/29/17 08:00 BP 125/72 07/29/17 08:00 Pulse Ox 98 07/29/17 08:00 Intake & Output 07/28/17 07/29/17 07/29/17 18:59 06:59 18:59 Intake Total 530 240 Output Total 1800 1300 Balance -1270 -1060 Weight 110.7 kg Intake: Oral 530 240 Output: Urine 1800 1300 Other: Voiding Method Bedside Commode Bedside Commode # Voids 3 # Bowel Movements 1 - Exam GENERAL: This is a 76-year-old male in no apparent distress at the time of examination. HEENT: Head is atraumatic, normocephalic. Pupils are equal, round, and reactive to light. Sclerae anicteric. Conjunctivae are clear. Mucus membranes of the mouth are moist. Neck is supple. RESPIRATORY: Lungs essentially clear throughout. No wheezing or rales noted. Patient does have dry nonproductive cough. No use of accessory muscles. Patient maintaining oxygen saturation greater than 92%. No chest wall tenderness is noted on palpation or with deep breathing. CARDIOVASCULAR: Regular rate and rhythm. S1 and S2 noted. No systolic or diastolic murmur auscultated. No JVD noted. No S3 or S4 noted. GASTROINTESTINAL: No distention noted. Abdomen soft and round. Normal active bowel sounds auscultated x 4 quadrants. No pain or tenderness noted upon palpation. INTEGUMENTARY: No cyanosis. No jaundice. No rashes noted. No cellulitis noted. EXTREMITIES: 2+ peripheral pulses. 1+ bilateral lower extremity edema. No calf tenderness noted. NEUROLOGIC: Cranial nerves II-XII intact. PSYCHIATRIC: Awake, alert, and oriented X 3. Appropriate affect. Intact judgement and insight. - Labs CBC & Chem 7: 07/28/17 05:50 07/29/17 07:02 Labs: Abnormal Lab Results - Last 24 Hours (Table) 07/28/17 07/28/17 07/28/17 Range/Units 11:43 16:38 20:43 BUN (9-20) mg/dL Creatinine (0.66-1.25) mg/dL Glucose (74-99) mg/dL POC Glucose (mg/dL) 199 H 207 H 247 H (75-99) mg/dL 07/29/17 07/29/17 Range/Units 06:05 07:02 BUN 56 H (9-20) mg/dL Creatinine 2.37 H (0.66-1.25) mg/dL Glucose 127 H (74-99) mg/dL POC Glucose (mg/dL) 140 H (75-99) mg/dL Assessment and Plan Plan: ASSESSMENT: Acute exacerbation of systolic congestive heart failure, EF 40-45% Elevated troponins, NSTEMI ruled out per cardiology, may be secondary to underlying renal failure or congestive heart failure Leukocytosis, likely secondary to steroids, no evidence of sepsis Chronic kidney disease, stage IV Coronary artery disease with previous CABG Chronic atrial fibrillation Generalized weakness and weight gain related to long-term steroid use Anemia of chronic disease Hypothyroidism with elevated TSH, synthroid dose was increased 3 weeks ago Morbid obesity: BMI 40.2 PLAN: Nephrology on consult. Appreciate recommendations and input Transition lasix to 40mg po bid per Dr Posey Pulmonary on consult. Appreciate recommendations and input Steroids transitioned to oral per pulmonary. Taper per pulmonary Antibiotics discontinued per pulmonary as pneumonia is unlikely Cardiology on consult. appreciate recommendations and input Continue current dose of Synthroid as patients dose was just increased 3 weeks ago. Repeat TSH in 3-4 weeks Mirapex discontinued per patient request. continue Requip per patient request. Patient states he was given samples of Myrbetriq recently from PCP. [facility] pharmacy does not carry Myrbetriq. to bring in medication from home. [place] 10 has been discontinued. Continue Tylenol for pain PRN. If patients pain is severe, may use [place] 5 PRN Q8 hours. Home meds as appropriate Monitor labs GI prophylaxis: Protonix 40 mg PO Daily DVT prophylaxis: Eliquis 2.5mg PO BID Monitor vital signs and address as appropriate PT/OT Further recommendations pending patient's course Patient would like to go home at the time of discharge instead of rehab. PT/OT re-evaluated patient and patient is safe to go home with therapy and home care Likely discharge home tomorrow if patient remains stable Nurse practitioner note has been reviewed by physician. Signing provider agrees with the documented findings, assessment, and plan of care.
--- NOTE | 2017-07-29 15:07 | P.PN ---
Subjective Progress Note Date: 07/29/17 Principal diagnosis: Shortness of breath This is a 76-year-old gentleman who presented to the hospital on this occasion with symptoms of fatigue and tiredness as well as restlessness in his legs. From a heart failure perspective, he is overall stable. Patient has known chronic atrial fibrillation for which he underwent cardioversion, ejection fraction documented to be 45% with moderate to severe mitral regurgitation. Chest x-ray did not show any evidence of congestive heart failure. Patient was seen and examined today, he's been up ambulating in the hallway without any difficulty. Overall patient has no overt complaints today and is hoping for possible discharge soon. Blood pressure 132/70 with a heart rate in the 70s, 95 % on room air. Sodium 141, potassium 4.3, chloride 102, BUN 56, creatinine 2.3. Objective - Vital Signs Vital signs: Vital Signs Temp 96.2 F L 07/29/17 08:00 Pulse 75 07/29/17 12:00 Resp 16 07/29/17 12:00 BP 132/70 07/29/17 12:00 Pulse Ox 95 07/29/17 12:00 Intake & Output 07/28/17 07/29/17 07/29/17 18:59 06:59 18:59 Intake Total 530 240 240 Output Total 1800 1300 Balance -1270 -1060 240 Weight 110.7 kg Intake: Oral 530 240 240 Output: Urine 1800 1300 Other: Voiding Method Bedside Commode Bedside Commode Bedside Commode # Voids 3 # Bowel Movements 1 - Exam PHYSICAL EXAMINATION: HEENT: Head is atraumatic, normocephalic. Pupils equal, round. Neck is supple. There is no elevated jugular venous pressure. HEART EXAMINATION: Heart S1, S2 normal. No murmur or gallop heard. CHEST EXAMINATION: Lungs are clear to auscultation and precussion. No chest wall tenderness is noted on palpation or with deep breathing. ABDOMEN: Soft, nontender. Bowel sounds are heard. No organomegaly noted. EXTREMITIES: 2+ peripheral pulses with trace to 1+ evidence of peripheral edema and no calf tenderness noted. NEUROLOGIC patient is awake, alert and oriented -3. . - Labs CBC & Chem 7: 07/28/17 05:50 07/29/17 07:02 Labs: Abnormal Lab Results - Last 24 Hours (Table) 03/07/28/17 07/29/17 Range/Units 16:38 20:43 06:05 BUN (9-20) mg/dL Creatinine (0.66-1.25) mg/dL Glucose (74-99) mg/dL POC Glucose (mg/dL) 207 H 247 H 140 H (75-99) mg/dL 07/29/17 07/29/17 Range/Units 07:02 11:27 BUN 56 H (9-20) mg/dL Creatinine 2.37 H (0.66-1.25) mg/dL Glucose 127 H (74-99) mg/dL POC Glucose (mg/dL) 179 H (75-99) mg/dL Assessment and Plan Plan: Assessment and plan #1 generalized weakness #2 systolic congestive heart failure, chronic #3 chronic kidney disease #4 coronary artery disease and prior bypass surgery Number 5 chronic persistent atrial fibrillation #6 anemia of chronic disease Plan From cardiology's perspective, patient may be able to be discharged once cleared by primary, we'll make a follow-up appointment with Dr. Maldonado in the office post discharge. This point we will follow the patient with you on an as- needed basis only, please don't hesitate to call with any questions. DNP note has been reviewed, I agree with a documented findings and plan of care. Patient was seen and examined.
[2017-07-29] MEDS: FUROSEMIDE 40 MG TAB PO SCH (16:24)
[2017-07-29 16:43] LABS: Glucose,Whole Blood 218 mg/dL (75-99)
[2017-07-29 20:51] LABS: Glucose,Whole Blood 269 mg/dL (75-99)
[2017-07-29] MEDS ORDERED: FUROSEMIDE 10 MG/ML 4 ML VIAL IV SCH (21:00)
[2017-07-29] MEDS: CHOLECALCIFEROL 1,000 UNIT TAB PO SCH (21:51)
[2017-07-29] MEDS: ATORVASTATIN 40 MG TAB PO SCH (21:51)
[2017-07-29] MEDS: MONTELUKAST 10 MG TAB PO SCH (21:52)
[2017-07-30] MEDS: SODIUM CHLORIDE 0.9% 1,000 ML IV SCH (03:31)
[2017-07-30] MEDS: ALPRAZolam 0.25 MG TAB PO PRN (03:36)
[2017-07-30 06:12] LABS: Glucose,Whole Blood 125 mg/dL (75-99)
[2017-07-30] MEDS: INSULIN ASPART 100 UNIT/ML 1 ML 10 ML VIAL SQ SCH (06:27)
[2017-07-30] MEDS: PANTOPRAZOLE 40 MG TABLET PO SCH (06:55)
[2017-07-30] MEDS: LEVOTHYROXINE 112 MCG TAB PO SCH (06:55)
[2017-07-30] MEDS: IPRATROPIUM-ALBUTEROL 3 ML NEB INHALATION PRN (07:56)
--- NOTE | 2017-07-30 08:31 | P.DS ---
Providers Date of admission: 07/24/17 16:31 Expected date of discharge: 07/30/17 Attending physician: Andreas Schroeder Consults: 07/24/17 16:31 Consult Physician Routine Consulting Provider: Natividad Odom Consult Reason/Comments: Elevated troponin, CHF, chronic renal failure Do you want consulting provider notified?: Yes 07/25/17 16:36 Consult Physician Routine Consulting Provider: Ludmila Titus Consult Reason/Comments: Dyspnea Do you want consulting provider notified?: Yes 07/26/17 09:20 Consult Physician Routine Consulting Provider: Asif Sagastume Consult Reason/Comments: CKD, CHF Do you want consulting provider notified?: Already Contacted 07/26/17 09:31 Consult Physician Routine Consulting Provider: Asif Sagastume Consult Reason/Comments: CKD, pt request Do you want consulting provider notified?: Yes 07/26/17 11:45 Consult Physician Routine Consulting Provider: Ousmane Jacobs Consult Reason/Comments: eval for inpatient rehab Do you want consulting provider notified?: Yes 07/28/17 09:13 Consult Physician Routine Consulting Provider: Yaya Conner Consult Reason/Comments: please re-eval for CHF Do you want consulting provider notified?: Yes Primary care physician: Andreas Schroeder Hospital Course: 76 year old male who presented to the emergency room with a chief complaint of shortness of breath and generalized weakness. Patient also reports a 12 pound weight gain. The patient was recently hospitalized for CHF exacerbation and asthma exacerbation. The patient was home approximately one month. He reports a cough at home and states he saw his PCP in the office and was prescribed more steroids and Augmentin. The patient was treated for CHF exacerbation during hospitalization. His CXR continued to show findings of CHF and cardiomegaly with vascular congestion. Cardiology evaluated the patient and did not feel his shortness of breath was related to CHF. Nephrology was also consulted. He was started on IV lasix. The patients lasix was increased to TID per nephrology x 24 hours during hospitalization and then weaned back to BID. Nephrology recommends lasix 40mg PO BID at the time of discharge. The patients SOB has significantly decreased with IV diuretics. He has been ambulating in the hallway. Initially, the patients discharge plan included ECF or inpatient rehab, but the patient made great improvements and was found safe to be discharged home with home therapy per PT/OT [facility] recommendations. The patient complained of restless leg syndrome during hospitalization. He states he was started on Requip in May 2017 and it was working very well for him at first, but recently he felt it was not working and the patient took himself off this medication. He was started on Mirapex during his hospitalization. The patient only received 2 dose of Mirapex and then stated he wanted to be switched back to Requip. Patient was started on Requip at 0.75mg at HS and patient states it is helping and he has been able to sleep at night. The patient was evaluated by pulmonary during hospitalization. He was initially started on IV steroids. Pulmonary did not feel that the patient required IV steroids and he was transitioned to oral steroids. His antibiotics were also discontinued per pulmonary as pneumonia was not likely. The patient has eosinophilic phenotype and elevated immunoglobulin E. Outpatient follow up is recommended with possible biologic treatment. Patient's TSH is 7.990. Previous TSH from last month was 11.100. Patient is currently taking 112mcg of Synthroid. Patients states his dose was just increased about three weeks ago to 112mcg from 100mcg. Will continue current dose and repeat TSH in 3-4 weeks. The patient was deemed stable for discharge. He is to follow up on an outpatient basis. DISCHARGE DIAGNOSIS: Acute exacerbation of systolic congestive heart failure, EF 40-45% Elevated troponins, NSTEMI ruled out per cardiology, may be secondary to underlying renal failure or congestive heart failure Leukocytosis, likely secondary to steroids, no evidence of sepsis Chronic kidney disease, stage IV Coronary artery disease with previous CABG Chronic atrial fibrillation Generalized weakness and weight gain related to long-term steroid use Anemia of chronic disease Hypothyroidism with elevated TSH, synthroid dose was increased 3 weeks ago Morbid obesity: BMI 40.2 Nurse practitioner note has been reviewed by physician. Signing provider agrees with the documented findings, assessment, and plan of care. Patient Condition at Discharge: Stable Plan - Discharge Summary Discharge Rx Participant: No New Discharge Prescriptions: New Ammonium Lactate Cream [Lac-Hydrin 12% Cream] 1 applic TOPICAL BID PRN #1 cream PRN Reason: Dry Skin Furosemide [Lasix] 40 mg PO BID@0900,1600 #60 tab guaiFENesin [Mucinex] 1,200 mg PO Q12HR PRN #30 tab PRN Reason: Cough predniSONE See Taper PO DIRECTED #18 tab rOPINIRole HCL [Requip] 0.75 mg PO HS #90 tab Continue Cholecalciferol [Vitamin D3] 2,000 unit PO HS Ubidecarenone [Coq-10] 200 mg PO QAM Omeprazole [PriLOSEC] 20 mg PO QAM Isosorbide Mononitrate ER [Imdur] 60 mg PO BID Rosuvastatin Calcium [Crestor] 20 mg PO HS L.acidoph,Paracasei, B.lactis [Probiotic] 1 cap PO QAM Multivitamins, Thera [Multivitamin (formulary)] 1 tab PO QAM Glucosam/Chond/Hyalu/Cf Borate [Move Free Joint Health Tablet] 1 tab PO QAM cycloSPORINE [Restasis] 1 applicator BOTH EYES BID Amiodarone [Cordarone] 200 mg PO DAILY Levothyroxine Sodium [Synthroid] 112 mcg PO QAM Apixaban [Eliquis] 2.5 mg PO BID tablet Metoprolol Tartrate [Lopressor] 12.5 mg PO BID #60 tab Montelukast [Singulair] 10 mg PO HS Ferrous Sulfate [Iron (65 MG Elemental)] 325 mg PO BID hydrOXYzine HCL [Atarax] 25 mg PO HS PRN PRN Reason: Agitation ALPRAZolam [Xanax] 0.25 mg PO TID PRN PRN Reason: Agitation Acetaminophen [Tylenol Extra Strength] 1,000 mg PO Q6H PRN PRN Reason: Pain Darbepoetin Sav [Aranesp] 40 mcg SQ WE Discontinued Sodium Bicarbonate Tab 650 mg PO BID #60 tab Furosemide [Lasix] 40 mg PO SUMOTUTHFR Discharge Medication List Cholecalciferol [Vitamin D3] 2,000 unit PO HS 09/20/13 [History] Isosorbide Mononitrate ER [Imdur] 60 mg PO BID 09/20/13 [History] Omeprazole [PriLOSEC] 20 mg PO QAM 09/20/13 [History] Rosuvastatin Calcium [Crestor] 20 mg PO HS 09/20/13 [History] Ubidecarenone [Coq-10] 200 mg PO QAM 09/20/13 [History] Glucosam/Chond/Hyalu/Cf Borate [Move Free Joint Health Tablet] 1 tab PO QAM [History] L.acidoph,Paracasei, B.lactis [Probiotic] 1 cap PO QAM 03/30/17 [History] Multivitamins, Thera [Multivitamin (formulary)] 1 tab PO QAM 03/30/17 [History] Amiodarone [Cordarone] 200 mg PO DAILY 05/05/17 [History] cycloSPORINE [Restasis] 1 applicator BOTH EYES BID 05/05/17 [History] Levothyroxine Sodium [Synthroid] 112 mcg PO QAM 05/29/17 [History] Apixaban [Eliquis] 2.5 mg PO BID tablet 06/02/17 [Rx] Metoprolol Tartrate [Lopressor] 12.5 mg PO BID #60 tab 06/14/17 [Rx] ALPRAZolam [Xanax] 0.25 mg PO TID PRN 07/14/17 [History] Ferrous Sulfate [Iron (65 MG Elemental)] 325 mg PO BID 07/14/17 [History] Montelukast [Singulair] 10 mg PO HS 07/14/17 [History] hydrOXYzine HCL [Atarax] 25 mg PO HS PRN 07/14/17 [History] Acetaminophen [Tylenol Extra Strength] 1,000 mg PO Q6H PRN 07/24/17 [History] Darbepoetin Sav [Aranesp] 40 mcg SQ WE 07/24/17 [History] Ammonium Lactate Cream [Lac-Hydrin 12% Cream] 1 applic TOPICAL BID PRN #1 cream 07/29/17 [Rx] Furosemide [Lasix] 40 mg PO BID@0900,1600 #60 tab 07/29/17 [Rx] guaiFENesin [Mucinex] 1,200 mg PO Q12HR PRN #30 tab 07/29/17 [Rx] predniSONE See Taper PO DIRECTED #18 tab 07/29/17 [Rx] rOPINIRole HCL [Requip] 0.75 mg PO HS #90 tab 07/29/17 [Rx] Follow up Appointment(s)/Referral(s): Jessica Rios MD [STAFF PHYSICIAN] - 08/06/17 10:40 am (Keep previous appointment.) Anjel Maldonado MD [STAFF PHYSICIAN] - 08/11/17 10:15 am Ludmila Titus DO [Doctor of Osteopathic Medicine] - 1 Week [facility], [NON-STAFF] - Andreas Schroeder MD [Primary Care Provider] - 08/04/17 2:15 pm Ambulatory/Diagnostic Orders: Basic Metabolic Panel [LAB.AMB] Time Frame: 3 Days, Location: Determined By Patient Patient Instructions/Handouts: Heart Failure (DC), Chronic Kidney Disease (DC) Discharge Disposition: HOME WITH HOME HEALTH SERVICES
[2017-07-30 08:34] LABS: Calcium 9.5 mg/dL (8.4-10.2); Potassium 3.8 mmol/L (3.5-5.1)
[2017-07-30 08:36] VITALS: PULSE 79
--- NOTE | 2017-07-30 08:36 | P.PN ---
Subjective Patient is seen in follow-up for chronic kidney disease. Patient has chronic kidney disease stage IIIB/4 with baseline creatinine the range of 2-2.5. GFR is at baseline. Patient presented with generalized weakness and weight gain. Patient was receiving steroids on and off for nearly the past 2 months. He gained about 12 pounds over the last 2 months or so. He is noted to have an ejection fraction of 35-40% with mild to moderate pulmonary hypertension. Currently maintained on Lasix 40 mg orally twice daily. Edema is improving. Denies chest pain or shortness of breath. Vital signs are stable. General: The patient appeared well nourished and normally developed. HEENT: Head exam is unremarkable. Neck is without jugular venous distension. LUNGS: Lungs are clear to auscultation and percussion. Breath sounds decreased. HEART: Rate and Rhythm are regular. First and second heart sounds normal. No murmurs, rubs or gallops. ABDOMEN: Abdominal exam reveals normal bowel sounds. Non-tender and non- distended. No evidence of peritonitis. EXTREMITITES: 1+ edema. Objective - Vital Signs Vital signs: Vital Signs Temp 97.0 F L 07/30/17 04:00 Pulse 75 07/30/17 08:11 Resp 19 07/30/17 04:00 BP 165/86 07/30/17 04:00 Pulse Ox 94 L 07/30/17 04:00 Intake & Output 07/29/17 07/30/17 07/30/17 18:59 06:59 18:59 Intake Total 960 Output Total 800 Balance 960 -800 Weight 108.5 kg Intake: Oral 960 Output: Urine 800 Other: Voiding Method Bedside Commode Bedside Commode # Voids 2 1 # Bowel Movements 1 - Labs CBC & Chem 7: 07/28/17 05:50 07/29/17 07:02 Labs: Abnormal Lab Results - Last 24 Hours (Table) 07/29/17 07/29/17 07/29/17 Range/Units 07:02 11:27 16:38 BUN 56 H (9-20) mg/dL Creatinine 2.37 H (0.66-1.25) mg/dL Glucose 127 H (74-99) mg/dL POC Glucose (mg/dL) 179 H 218 H (75-99) mg/dL 03/29/18 03/30/18 Range/Units 20:50 06:10 BUN (9-20) mg/dL Creatinine (0.66-1.25) mg/dL Glucose (74-99) mg/dL POC Glucose (mg/dL) 269 H 125 H (75-99) mg/dL Assessment and Plan Plan: assessment: #1. Chronic kidney disease stage IV secondary to nephrosclerosis and nonrecovered ATN with baseline creatinine in the range of 2-2.5. GFR near baseline. #2. Generalized weakness and weight gain related to long-term steroid use. #3. Systolic CHF with ejection fraction of 45% with moderate to severe mitral regurgitation. Mildly decompensated. #4. Anemia of chronic kidney disease maintained on Aranesp. #5. Chronic A. fib. Currently rate controlled. Cardiology following. #6. Hypokalemia secondary to diuresis. Magnesium replete. Improved post replacement. #7. Volume overload. Improving. Weight trending down. Plan: Continue Lasix 40 mg orally twice daily. Avoid nephrotoxic agents and hypotensive episodes. Pulmonology following. Steroids per their recommendations. Discontinued sodium bicarbonate. Anticipate discharge soon. He can go home on Lasix 40 mg orally twice daily. He will need to get a BMP checked within 2-3 days of discharge and follow-up as an outpatient in the next 1-2 weeks. I advised him to monitor his weights daily and to call office if more than 2-3 pound weight gain.
[2017-07-30 08:37] VITALS: BP 162/83; RESP 22; TEMP 96.7
[2017-07-30] MEDS: FERROUS SULFATE 325 MG TAB PO SCH (08:39)
[2017-07-30] MEDS: FUROSEMIDE 40 MG TAB PO SCH (08:39)
[2017-07-30] MEDS: DOCUSATE 100 MG CAP PO SCH (08:39)
[2017-07-30] MEDS: cycloSPORINE 0.05% OPHTH 0.4 ML DROPERETTE BOTH EYES SCH (08:39)
[2017-07-30] MEDS: LACTOBACILLUS ACIDOPH & BULGAR 1 EACH PACKET PO SCH (08:39)
[2017-07-30] MEDS: MULTIVITAMINS, THERA 1 EACH TAB PO SCH (08:40)
[2017-07-30] MEDS: METOPROLOL TARTRATE 12.5 MG TAB PO SCH (08:40)
[2017-07-30] MEDS: APIXABAN 2.5 MG TABLET PO SCH (08:40)
[2017-07-30] MEDS: guaiFENesin 600 MG TABLET.ER PO SCH (08:40)
[2017-07-30] MEDS: ISOSORBIDE MONONITRATE ER 60 MG TAB.ER.24H PO SCH (08:40)
[2017-07-30] MEDS: predniSONE 20 MG TAB PO SCH (08:40)
[2017-07-30] MEDS: SODIUM BICARBONATE TAB 650 MG TAB PO SCH (08:40)
[2017-07-30] MEDS: AMIODARONE 200 MG TAB PO SCH (08:41)
[2017-07-30] MEDS: AMMONIUM LACTATE 12% CREAM 140 GM TUBE TOPICAL SCH (08:41)
--- NOTE | 2017-07-30 08:52 | P.PN ---
Subjective Progress Note Date: 07/30/17 HPI: This is a 76-year-old gentleman who presented to the emergency department with fatigue, shortness of breath, generalized weakness. The patient states this is been ongoing for over a week. He was started on Augmentin as an outpatient. He was also given an injection antibiotic. He states that he has gained about 12 pounds in the last few weeks. His is concerned that this might be due to the high-dose steroids he's been on. The patient complains of shortness of breath with minimal exertion. He denies fevers and chills. He denies cough productive of sputum. He is currently on room air. His chest x-ray does show pulmonary edema. He also had elevated troponins. 07/27/17- patient is being seen examined and evaluated today on rounds. The patient appears very sleepy resting up in bed on room air. states she is concerned that the patient did receive [place] and it is too much for him. The patient only takes extra strength Tylenol at home she would like him to be put back on the Tylenol rather than use [place]. His chest x-ray has been reviewed and still is consistent with CHF. He continues on Lasix 40 mg twice a day. Apparently the patient refused his a.m. dose of IV Lasix, the importance of receiving his Lasix in regards to his heart failure has been discussed with him , is in agreeing to take it at this time. Discussed this with his nurse as well and his a.m. dose will be given now. 07/28/17- patient is being seen examined and evaluated today on rounds. The patient's chest x-ray was reviewed and does reveal some worsening in his CHF. However the patient states he actually is feeling somewhat better today. He has a negative fluid balance and his weight has decreased as well. Case is discussed with nephrology and he will continue to be diuresed, kidneys are at baseline. We'll order echo for the patient. 07/29/17- Please see Dr. Dago Kimball note 07/30/17- patient is being seen examined and evaluated today on rounds. He is preparing for discharge. The patient is resting up in bed states his breathing is feeling better. He expresses interest in pulmonary rehab in the outpatient setting. He is being set up for home health care and physical therapy. Objective - Vital Signs Vital signs: Vital Signs Temp 96.7 F L 07/30/17 08:00 Pulse 75 07/30/17 08:11 Resp 22 07/30/17 08:00 BP 162/83 07/30/17 08:00 Pulse Ox 95 07/30/17 08:00 Intake & Output 07/29/17 07/30/17 07/30/17 18:59 06:59 18:59 Intake Total 960 180 Output Total 800 Balance 960 -800 180 Weight 108.5 kg Intake: Oral 960 180 Output: Urine 800 Other: Voiding Method Bedside Commode Bedside Commode Bedside Commode # Voids 2 1 # Bowel Movements 1 - Exam Gen.: Patient is alert and oriented 3, no acute distress, morbidly obese Cardiovascular: Regular rate and rhythm, S1/S2 Lungs: Diminished bilaterally, overall improved Abdomen: Soft nontender nondistended positive bowel sounds Extremities: 2+ pitting edema - Labs CBC & Chem 7: 07/28/17 05:50 07/30/17 07:47 Labs: Abnormal Lab Results - Last 24 Hours (Table) 07/29/17 07/29/17 07/29/17 Range/Units 11:27 16:38 20:50 BUN (9-20) mg/dL Creatinine (0.66-1.25) mg/dL Glucose (74-99) mg/dL POC Glucose (mg/dL) 179 H 218 H 269 H (75-99) mg/dL 07/30/17 07/30/17 Range/Units 06:10 07:47 BUN 62 H (9-20) mg/dL Creatinine 2.43 H (0.66-1.25) mg/dL Glucose 155 H (74-99) mg/dL POC Glucose (mg/dL) 125 H (75-99) mg/dL Assessment and Plan Assessment: Acute exacerbation of CHF, EF 40-45%, systolic Pulmonary edema, fluid overload NSTEMI Doubt pneumonia Leukocytosis likely secondary to steroids Eosinophilic asthma Chronic kidney disease stage IV Suspect underlying HERIBERTO History of Afib Morbid obesity Elevated eosinophil and IgE levels Patient is cleared from pulmonary standpoint for discharge Continue DuoNebs Q6 hours and as needed. Budesonide is scheduled for twice a day will be discontinued, patient states he is intolerant of this medication, it makes him dry-heave. Steroid taper quickly. Diuresis with Lasix, I/O, daily weight, Cardiology and nephrology both on board and appreciate recommendations. Patient could benefit from a sleep study however he did state that he had one approximately 3-4 years ago however he has gained more weight since then. Could consider biologic as outpatient for eos/IgE asthma. Continue with pulmonary hygiene and supportive care. Continue to encourage incentive spirometer. We will continue to follow with labs and reports and adjust treatment as necessary. I performed an examination of the patient and discussed their management with the nurse practitioner. I have reviewed the nurse practitioner's note and agree with the documented findings and plan of care.
== END 2017-07-30 09:50 | disposition home health service (06) | DRG 291 ==
LOC: EC 13:24 → 6SEL 16:31
PROVIDERS: ADMIT Family Medicine; ATTEND Family Medicine
DX: I13.0 Hypertensive heart and chronic kidney disease with heart failure and stage 1 through stage 4 chronic kidney disease, or unspecified chronic kidney disease (principal); I50.23 Acute on chronic systolic (congestive) heart failure; N17.0 Acute kidney failure with tubular necrosis; I48.1 Persistent atrial fibrillation; J82 Pulmonary eosinophilia, not elsewhere classified; N18.4 Chronic kidney disease, stage 4 (severe); I27.20 Pulmonary hypertension, unspecified; E66.01 Morbid (severe) obesity due to excess calories; I48.2 Chronic atrial fibrillation; G25.81 Restless legs syndrome; D63.1 Anemia in chronic kidney disease; E03.9 Hypothyroidism, unspecified; E78.5 Hyperlipidemia, unspecified; E87.6 Hypokalemia; G47.33 Obstructive sleep apnea (adult) (pediatric); G89.29 Other chronic pain; I25.10 Atherosclerotic heart disease of native coronary artery without angina pectoris; I25.2 Old myocardial infarction; I34.0 Nonrheumatic mitral (valve) insufficiency; K21.9 Gastro-esophageal reflux disease without esophagitis; M19.90 Unspecified osteoarthritis, unspecified site; F41.9 Anxiety disorder, unspecified; G43.909 Migraine, unspecified, not intractable, without status migrainosus; K57.90 Diverticulosis of intestine, part unspecified, without perforation or abscess without bleeding; T50.2X5A Adverse effect of carbonic-anhydrase inhibitors, benzothiadiazides and other diuretics, initial encounter; T38.0X5A Adverse effect of glucocorticoids and synthetic analogues, initial encounter; D72.829 Elevated white blood cell count, unspecified; R74.8 Abnormal levels of other serum enzymes; R89.4 Abnormal immunological findings in specimens from other organs, systems and tissues; Z68.41 Body mass index [BMI] 40.0-44.9, adult; Z96.611 Presence of right artificial shoulder joint; Z96.642 Presence of left artificial hip joint; Z95.1 Presence of aortocoronary bypass graft; Z87.01 Personal history of pneumonia (recurrent); Z79.01 Long term (current) use of anticoagulants; Z79.899 Other long term (current) drug therapy; Z98.42 Cataract extraction status, left eye; Z98.41 Cataract extraction status, right eye; Z91.041 Radiographic dye allergy status
CPT/HCPCS: 36415; 71046; 80048; 80053; 81001; 82550; 82553; 83036; 83735; 83880; 84439; 84443; 84484; 85025; 93005; 93306; 94640; 94760; 96374; 99285

== ENCOUNTER → 2017-09-01 | Outpatient (CLI) | payer MEDICARE, OTHER ==
[2017-09-01 12:58] LABS: T4, Free (Free Thyroxine) 2.59 ng/dL (0.78-2.19)
== END | disposition home or self-care (01) ==
LOC: LABWHC1 11:35
PROVIDERS: ATTEND Family Medicine
DX: E11.29 Type 2 diabetes mellitus with other diabetic kidney complication (principal); E03.9 Hypothyroidism, unspecified
CPT/HCPCS: 36415; 84439; 84443; 84481

== ENCOUNTER → 2017-09-23 | Outpatient (CLI) | payer MEDICARE, OTHER ==
--- NOTE | 2017-09-23 13:17 | US ---
EXAMINATION TYPE: US kidneys/renal and bladder DATE OF EXAM: 09/23/2017 COMPARISON: NONE CLINICAL HISTORY: N13.9 OBSTRUCTIVE UROPATHY. elderly man, known renal failure EXAM MEASUREMENTS: Right Kidney: 10.0 x 5.2 x 5.7 cm Left Kidney: 9.5 x 5.4 x 6.2 cm Moderate ascites. Right Kidney: Cortical renal thinning is noted. Cortical medullary differentiation is maintained. No hydronephrosis or nephrolithiasis. Left Kidney: Cortical renal thinning is noted. Cortical medullary differentiation is maintained. No h ydronephrosis or nephrolithiasis. Bladder: wnl Bilateral Jets seen: no There is no evidence for hydronephrosis at this point in time. No nephrolithiasis is seen. No wilfredo s are identified. The urinary bladder is anechoic. IMPRESSION: Medical renal disease with no sonographic evidence of obstructive uropathy. No hydronephr osis or nephrolithiasis seen. Incidentally noted moderate abdominal ascites.
[2017-09-23 13:22] LABS: Anisocytosis Slight; HCT 35.1 % (39.0-53.0); HGB 11.3 gm/dL (13.0-17.5); Hypochromasia Slight; MCHC 32.3 g/dL (31.0-37.0); Mean Platelet Volume 9.1; Platelet Count 189 k/uL (150-450); RBC 3.77 m/uL (4.30-5.90); RDW 17.5 % (11.5-15.5); WBC 9.9 k/uL (3.8-10.6)
[2017-09-23 13:39] LABS: Albumin 3.2 g/dL (3.5-5.0); Calcium 8.8 mg/dL (8.4-10.2); Potassium 4.3 mmol/L (3.5-5.1); Total Bilirubin 1.6 mg/dL (0.2-1.3); Total Protein 6.1 g/dL (6.3-8.2)
== END | disposition home or self-care (01) ==
LOC: RADUSWWP 12:39
PROVIDERS: ATTEND Internal Medicine Nephrology
DX: N28.9 Disorder of kidney and ureter, unspecified (principal); N18.4 Chronic kidney disease, stage 4 (severe)
CPT/HCPCS: 36415; 76770; 80053; 85027

== ENCOUNTER 2017-09-28 00:51 | Emergency (ER) | payer MEDICARE, OTHER ==
--- NOTE | 2017-09-28 01:54 | ED ---
General Adult HPI - General Chief complaint: Urogenital Stated complaint: weakness/weight gain Time Seen by Provider: 09/28/17 01:24 Source: patient Mode of arrival: wheelchair Limitations: no limitations - History of Present Illness Initial comments: Patient is 76-year-old man who presents with complaint that he is having constant urge to urinate as well as discomfort in the groin area. Patient states this is been going on for weeks to months. The patient had some workup for this last week, including labs, urinalysis, and ultrasound. The symptoms have been going on probably since he had been admitted to the hospital in July for congestive heart failure and for kidney failure. He had been retaining a lot of fluid and there was some relief with diuresis last time however he believes he is starting to reaccumulate some of the water weight. the patient is denying chest pain, dyspnea, cough. He has not noted a recent change in the urine output. -: month(s) Consistency: constant Improves with: none Worsens with: none Treatments Prior to Arrival: none - Related Data Home Medications Medication Instructions Recorded Confirmed Cholecalciferol [Vitamin D3] 2,000 unit PO HS 09/20/13 08/25/17 Isosorbide Mononitrate ER [Imdur] 60 mg PO BID 09/20/13 08/25/17 Omeprazole [PriLOSEC] 20 mg PO QAM 09/20/13 08/25/17 Rosuvastatin Calcium [Crestor] 20 mg PO HS 09/20/13 08/25/17 Ubidecarenone [Coq-10] 200 mg PO QAM 09/20/13 08/25/17 Glucosam/Chond/Hyalu/Cf Borate 1 tab PO QAM 03/30/17 08/25/17 [Move Free Joint Health Tablet] L.acidoph,Paracasei, B.lactis 1 cap PO QAM 03/30/17 08/25/17 [Probiotic] Multivitamins, Thera [Multivitamin 1 tab PO QAM 03/30/17 08/25/17 (formulary)] Amiodarone [Cordarone] 200 mg PO DAILY 05/05/17 08/25/17 cycloSPORINE [Restasis] 1 applicator BOTH EYES BID 05/05/17 08/25/17 Levothyroxine Sodium [Synthroid] 112 mcg PO QAM 05/29/17 08/25/17 ALPRAZolam [Xanax] 0.25 mg PO TID PRN 07/14/17 08/25/17 Ferrous Sulfate [Iron (65 MG 325 mg PO BID 07/14/17 08/25/17 Elemental)] Montelukast [Singulair] 10 mg PO HS 07/14/17 08/25/17 hydrOXYzine HCL [Atarax] 25 mg PO HS PRN 07/14/17 08/25/17 Acetaminophen [Tylenol Extra 1,000 mg PO Q6H PRN 07/24/17 08/25/17 Strength] Darbepoetin Sav [Aranesp] 40 mcg SQ WE 07/24/17 08/25/17 Tamsulosin HCl [Flomax] 0.4 mg PO DAILY 08/18/17 08/25/17 cloNIDine HCL [Catapres] 0.1 mg PO DAILY 08/18/17 08/25/17 Benralizumab [Fasenra] 30 mg SQ DIRECTED 08/25/17 08/25/17 Previous Rx's Medication Instructions Recorded Apixaban [Eliquis] 2.5 mg PO BID tablet 06/02/17 Metoprolol Tartrate [Lopressor] 12.5 mg PO BID #60 tab 06/14/17 Ammonium Lactate Cream [Lac-Hydrin 1 applic TOPICAL BID PRN #1 cream 07/29/17 12% Cream] Furosemide [Lasix] 40 mg PO BID@0900,1600 #60 tab 07/29/17 guaiFENesin [Mucinex] 1,200 mg PO Q12HR PRN #30 tab 07/29/17 rOPINIRole HCL [Requip] 0.75 mg PO HS #90 tab 07/29/17 Hyoscyamine Sulfate [Levbid] 0.375 mg PO BID #14 tab.er.12h 09/28/17 Allergies Allergy/AdvReac Type Severity Reaction Status Date / Time Iodinated Contrast- Oral and Allergy Anaphylaxis Verified 08/25/17 13:06 IV Dye [Iodinated Contrast Media - IV Dye] diazepam [From Valium] AdvReac Confusion Verified 08/25/17 13:06 Review of Systems ROS Statement: Those systems with pertinent positive or pertinent negative responses have been documented in the HPI. ROS Other: All systems not noted in ROS Statement are negative. Constitutional: Reports: weakness. Denies: fever, chills Respiratory: Denies: cough, dyspnea, wheezes Cardiovascular: Reports: dyspnea on exertion, edema. Denies: chest pain, palpitations, syncope Gastrointestinal: Reports: abdominal pain. Denies: nausea, vomiting, diarrhea, constipation Genitourinary: Reports: urgency, frequency. Denies: dysuria, hematuria Musculoskeletal: Denies: back pain Skin: Denies: rash Neurological: Denies: headache, weakness, numbness Past Medical History Past Medical History: Atrial Fibrillation, Coronary Artery Disease (CAD), Chest Pain / Angina, Heart Failure, GERD/Reflux, GI Bleed, Hyperlipidemia, Hypertension, Myocardial Infarction ([place]), Osteoarthritis (OA), Pneumonia, Thyroid Disorder Additional Past Medical History / Comment(s): migraines, stage 3 kidney disease , pt. recently admitted 2017 for GI bleed, Systolic Congestive Heart Failure, diverticulosis, gastritis Last Myocardial Infarction Date:: unknown History of Any Multi-Drug Resistant Organisms: None Reported Past Surgical History: Coronary Bypass/CABG, Heart Catheterization, Joint Replacement Additional Past Surgical History / Comment(s): CABG 1988,2001, left carotid endarectomy, left hip & rt shoulder replacements, nikolay cataract, egd/ colonscopy 2017, cardioversion 2017, [facility] March 31, 2017 Past Anesthesia/Blood Transfusion Reactions: No Reported Reaction Additional Past Anesthesia/Blood Transfusion Reaction / Comment(s): "1st CABG-( in [place]) - he was given card that states type 0 pos with anti-E" Past Psychological History: Anxiety Smoking Status: Never smoker Past Alcohol Use History: None Reported Past Drug Use History: None Reported - Past Family History Father Family Medical History: Cancer Mother Family Medical History: Cancer Sister(s) Family Medical History: Cancer General Exam Limitations: no limitations General appearance: alert, obese Head exam: Present: atraumatic, normocephalic Eye exam: Present: normal appearance ENT exam: Present: mucous membranes dry Neck exam: Present: normal inspection Respiratory exam: Present: normal lung sounds bilaterally. Absent: respiratory distress, wheezes, rales, rhonchi, stridor Cardiovascular Exam: Present: normal rhythm, irregular rhythm, normal heart sounds. Absent: systolic murmur, diastolic murmur, rubs, gallop GI/Abdominal exam: Present: soft. Absent: distended, tenderness, guarding, rebound, organomegaly, mass Extremities exam: Present: normal inspection, normal capillary refill, pedal edema (There is edema bilaterally to the knees). Absent: calf tenderness Back exam: Present: normal inspection. Absent: CVA tenderness (R), CVA tenderness (L) Neurological exam: Present: alert Skin exam: Present: warm, dry, intact, pallor. Absent: rash Course Vital Signs 09/28/17 09/28/17 09/28/17 01:05 03:24 04:04 Temperature 97.7 F Pulse Rate 67 64 62 Respiratory 16 18 18 Rate Blood Pressure 118/58 146/69 110/57 O2 Sat by Pulse 97 96 98 Oximetry Medical Decision Making - Medical Decision Making Patient is 76-year-old man whose chief complaint here is the feeling that he has to urinate more or less continuously. The patient had an ultrasound a couple of days ago that showed no evidence of urinary obstruction. Whyte catheter was placed here which confirms that finding as there was very minimal urine output. Patient does feel better here following a small dose of analgesic. At this point the patient requested to go home and rest in his own home. I had discussed case with Dr. Hernandez who will see the patient today in clinic. In addition today the patient has visiting nurse coming to arrange a sleep study for the patient. Discussed return parameters and appropriate follow -up. - Lab Data Result diagrams: 09/28/17 02:30 09/28/17 02:30 Lab Results 09/28/17 09/28/17 09/28/17 Range/Units 01:30 02:30 02:30 WBC 9.6 (3.8-10.6) k/uL RBC 4.23 L (4.30-5.90) m/uL Hgb 12.5 L (13.0-17.5) gm/dL Hct 39.7 (39.0-53.0) % MCV 93.9 (80.0-100.0) fL MCH 29.5 (25.0-35.0) pg MCHC 31.4 (31.0-37.0) g/dL RDW 17.5 H (11.5-15.5) % Plt Count 208 (150-450) k/uL Neutrophils % 61 % Lymphocytes % 23 % Monocytes % 11 % Eosinophils % 1 % Basophils % 0 % Neutrophils # 5.9 (1.3-7.7) k/uL Lymphocytes # 2.2 (1.0-4.8) k/uL Monocytes # 1.1 H (0-1.0) k/uL Eosinophils # 0.1 (0-0.7) k/uL Basophils # 0.0 (0-0.2) k/uL Hypochromasia Slight Anisocytosis Slight Sodium 134 L (137-145) mmol/L Potassium 3.8 (3.5-5.1) mmol/L Chloride 99 (98-107) mmol/L Carbon Dioxide 20 L (22-30) mmol/L Anion Gap 15 mmol/L BUN 47 H (9-20) mg/dL Creatinine 2.90 H (0.66-1.25) mg/dL Est GFR (CKD-EPI)AfAm 23 (>60 ml/min/1.73 sqM) Est GFR (CKD-EPI)NonAf 20 (>60 ml/min/1.73 sqM) Glucose 101 H (74-99) mg/dL Calcium 9.0 (8.4-10.2) mg/dL Total Bilirubin 1.5 H (0.2-1.3) mg/dL AST 51 (17-59) U/L ALT 37 (21-72) U/L Alkaline Phosphatase 272 H (38-126) U/L Total Protein 6.3 (6.3-8.2) g/dL Albumin 3.3 L (3.5-5.0) g/dL Urine Color Yellow Urine Appearance Clear (Clear) Urine pH 5.0 (5.0-8.0) Ur Specific [place] 1.013 (1.001-1.035) Urine Protein 1+ H (Negative) Urine Glucose (UA) Negative (Negative) Urine Ketones Negative (Negative) Urine Blood Negative (Negative) Urine Nitrite Negative (Negative) Urine Bilirubin Negative (Negative) Urine Urobilinogen <2.0 (<2.0) mg/dL Ur Leukocyte Esterase Negative (Negative) Urine WBC <1 (0-5) /hpf Ur Squamous Epith Cells <1 (0-4) /hpf Hyaline Casts 20 H (0-2) /lpf Urine Mucus Rare H (None) /hpf Disposition Clinical Impression: Dysuria Disposition: HOME SELF-CARE Condition: Fair Instructions: Dysuria (ED) Prescriptions: Hyoscyamine Sulfate [Levbid] 0.375 mg PO BID #14 tab.er.12h Referrals: Andreas Schroeder MD [Primary Care Provider] - 1-2 days
[2017-09-28 02:04] LABS: Appearance,Urine Clear (Clear); Bilirubin,Urine Negative (Negative); Blood,Urine Negative (Negative); Color,Urine Yellow; Glucose,Urine (UA) Negative (Negative); Hyaline Casts,Urine 20 /lpf (0-2); Ketones,Urine Negative (Negative); Leukocyte Esterase,Urine Negative (Negative); Mucus,Urine Rare /hpf; Nitrite,Urine Negative (Negative); Protein,Urine 1+ (Negative); Specific Gravity,Urine 1.013 (1.001-1.035); Squamous Epithelial Cell,Urine <1 /hpf (0-4); Urobilinogen,Urine <2.0 mg/dL (<2.0); WBC,Urine <1 /hpf (0-5)
[2017-09-28 02:39] LABS: Anisocytosis Slight; Basophils % (A) 0 %; Eosinophils # (A) 0.1 k/uL (0-0.7); Eosinophils % (A) 1 %; HCT 39.7 % (39.0-53.0); HGB 12.5 gm/dL (13.0-17.5); Hypochromasia Slight; Lymphocytes # (A) 2.2 k/uL (1.0-4.8); Lymphocytes % (A) 23 %; MCH 29.5 pg (25.0-35.0); MCHC 31.4 g/dL (31.0-37.0); MCV 93.9 fL (80.0-100.0); Mean Platelet Volume 7.7; Monocytes # (A) 1.1 k/uL (0-1.0); Monocytes % (A) 11 %; Neutrophils # (A) 5.9 k/uL (1.3-7.7); Neutrophils % (A) 61 %; Platelet Count 208 k/uL (150-450); RBC 4.23 m/uL (4.30-5.90); RDW 17.5 % (11.5-15.5); WBC 9.6 k/uL (3.8-10.6)
[2017-09-28 02:48] LABS: Albumin 3.3 g/dL (3.5-5.0); Potassium 3.8 mmol/L (3.5-5.1); Total Bilirubin 1.5 mg/dL (0.2-1.3); Total Protein 6.3 g/dL (6.3-8.2)
[2017-09-28] MEDS ORDERED: MORPHINE SULFATE 4 MG/ML SYRINGE IV STA (03:14)
[2017-09-28 05:04] VITALS: TEMP 97.9
[2017-09-28 05:05] VITALS: BP 110/71; PULSE 63; RESP 17
== END 2017-09-28 05:03 | disposition home or self-care (01) ==
LOC: EC 00:51
DX: R30.0 Dysuria (principal); I48.91 Unspecified atrial fibrillation; I25.10 Atherosclerotic heart disease of native coronary artery without angina pectoris; I13.0 Hypertensive heart and chronic kidney disease with heart failure and stage 1 through stage 4 chronic kidney disease, or unspecified chronic kidney disease; I50.22 Chronic systolic (congestive) heart failure; N18.3 Chronic kidney disease, stage 3 (moderate); E78.5 Hyperlipidemia, unspecified; I25.2 Old myocardial infarction; E07.9 Disorder of thyroid, unspecified; K21.9 Gastro-esophageal reflux disease without esophagitis; F41.9 Anxiety disorder, unspecified; Z95.1 Presence of aortocoronary bypass graft; Z79.899 Other long term (current) drug therapy; Z88.8 Allergy status to other drugs, medicaments and biological substances; Z91.041 Radiographic dye allergy status
CPT/HCPCS: 51798; 36415; 80053; 85025; 81001; 99284; 51702; 96374; J2270